=== PATIENT | male | born 1940 | race Caucasian/White ===

== ENCOUNTER → 2016-11-15 | Outpatient (CLI) | payer BC ==
[~2016-11-15] MED LIST: ALL180 PO
== END | disposition home or self-care (01) ==
LOC: C.RDSM 14:33
PROVIDERS: ATTEND Family Medicine
DX: M25.551 Pain in right hip (principal); M25.552 Pain in left hip

== ENCOUNTER → 2017-07-18 | Outpatient (CLI) | payer BC | END | disposition home or self-care (01) | LOC: C.LAB 07:29 | PROVIDERS: ATTEND Urology | DX: N40.1 Benign prostatic hyperplasia with lower urinary tract symptoms (principal); R97.20 Elevated prostate specific antigen [PSA]; R32 Unspecified urinary incontinence ==

== ENCOUNTER → 2017-09-12 | Outpatient (CLI) | payer BC ==
[2017-09-12 11:27] LABS: BLOOD UREA NITROGEN 31 mg/dl (7-18); CREATININE 1.12 mg/dl (0.60-1.40)
== END | disposition home or self-care (01) ==
LOC: C.LABBC 07:50
PROVIDERS: ATTEND Urology
DX: R97.20 Elevated prostate specific antigen [PSA] (principal)

== ENCOUNTER → 2017-09-27 | Outpatient (CLI) | payer BC ==
--- NOTE | 2017-09-27 11:30 | DIAGNOSTIC IMAGING REPORT ---
RIGHT HIP MRI HISTORY: Right hip pain. TECHNIQUE: Multiplanar multisequence MRI of the right hip was performed without the use of contrast. COMPARISON STUDY: Pelvis 11/15/2016. FINDINGS: No fracture or dislocation within the pelvis or hips. Slightly heterogeneous marrow within the visualized osseous structures. This is likely age-related. No suspicious osseous lesions identified. Less than 50% cartilage thinning within the super aspect of the right hip consistent with mild osteoarthritis. No significant hip effusion. Mild edema surrounding the distal right gluteus medius tendon consistent with a mild tenosynovitis. There is also mild edema within the soft tissues adjacent to the greater trochanter. This may represent a developing trochanteric bursitis. Irregular signal within the superior labrum. This may represent degeneration/tear. Enlarged and heterogeneous prostate gland measuring 6.6 cm in diameter. There is severe benign prostatic hypertrophy. IMPRESSION: 1. No fracture or dislocation within the pelvis or hips. 2. Irregular signal within the right superior labrum suggestive of a tear/degeneration. 3. Mild right hip osteoarthritis. 4. Mild right gluteus medius tenosynovitis. There is also mild soft tissue edema adjacent to the greater trochanter. This may represent a developing trochanteric bursitis. Electronically signed by: Dani Garzon M.D. 09/27/2017 11:29 AM Dictated Date/Time: 09/27/2017 11:20 AM
--- NOTE | 2017-09-27 13:50 | DIAGNOSTIC IMAGING REPORT ---
PROSTATE MRI COMBO CLINICAL HISTORY: 77 years-old Male presenting with ELEVATED PSA. TECHNIQUE: Multisequence, multiplanar MR imaging of the prostate was performed before and after the administration of intravenous contrast. Additional postprocessing was performed on a separate Before the Call workstation by the radiologist for 3-D volumetric segmentation of the prostate and contouring of region(s) of interest (ABDULAZIZ) for targeting. IV contrast: 7 cc Gadavist COMPARISON: None. FINDINGS: Prostate: The prostate measures 6.2 x 5.8 x 5.4 cm cm (DynaCAD prostate boundary segmentation volume 107 mL). Severe changes of benign prostatic hyperplasia. Precontrast T1 weighted imaging demonstrates no evidence of intrinsic T1 hyperintensity to suggest hemorrhage. Suspicious lesion(s) described below: Lesion (DynaCAD ABDULAZIZ) 1: Location: Right anterior transition zone at the apex. The lesion does not extend across the midline. Size: 15 x 11 mm (as measured on ADC for PZ lesion and T2WI for TZ lesion) T2W: 3. Heterogeneous signal intensity or noncircumscribed, rounded, moderate hypointensity. No evidence of extraprostatic extension, seminal vesicle invasion, or neurovascular bundle involvement. DWI: 4. Focal markedly hypointense on ADC and markedly hyperintense on high b-value DWI. DCE: Positive. Focal enhancement corresponding to a suspicious finding, earlier or contemporaneous with adjacent normal tissue. PI-RADS: 4. Clinically significant cancer is likely to be present. Seminal vesicles are normal in size. There is a debris-filled right seminal vesicle in comparison to the left. Bladder: Mild bladder trabeculation. Bowel: Visualized portion of the rectum normal. Peritoneum: No free fluid in the pelvis. Lymph nodes: No lymphadenopathy in the visualized portion of the pelvis. Vasculature: Iliac vessels patent. Abdominal wall: Partially visualized 4.5 cm left hydrocele/sprematocele. Osseous structures: Normal bone marrow signal intensity. IMPRESSION: 1. 15 x 11 mm lesion in the right transition zone at the apex. PI-RADS: 4. Clinically significant cancer is likely to be present. This lesion has been segmented for targeted biopsy. 2. Benign prostatic hyperplasia. Electronically signed by: Dani Garzon M.D. 09/27/2017 1:49 PM Dictated Date/Time: 09/27/2017 1:12 PM
== END | disposition home or self-care (01) ==
LOC: C.MRIBC 10:16
PROVIDERS: ATTEND Urology
DX: R97.20 Elevated prostate specific antigen [PSA] (principal); M25.551 Pain in right hip; M76.01 Gluteal tendinitis, right hip; M76.02 Gluteal tendinitis, left hip; M16.0 Bilateral primary osteoarthritis of hip; N40.0 Benign prostatic hyperplasia without lower urinary tract symptoms

== ENCOUNTER 2024-05-20 10:44 | Observation (INO) ==
--- NOTE | 2024-05-06 14:47 | Anesthesiology Consultation ---
Date of Service May 06, 2024 Assessment & Plan (1) Encounter for pre-operative examination: Chart Review Chart Review: Acceptable Risk for Surgery and Patient NOT seen in Pre Admission Testing -Infectious Disease screening: Per PAT nursing assessment on 05/06/24. No known infectious disease contacts in past 10 days or current infectious disease symptoms. No recent travel outside the country. History Surgery Operation Date: 05/20/24 12:50 Proposed Procedures p TURP (Transurethral Resection of Prostate), Destruction and Extraction of Bladder Stones - Kelby Marion, Height/Weight Height: 5 ft 8 in Weight: 72.575 kg Allergies Allergy/AdvReac Type Severity Reaction Status Date / Time No Known Allergies Allergy Verified 05/06/24 13:51 Medications Home Medications Medication Instructions Recorded Confirmed Last Taken melatonin 3 mg tablet 3 mg PO HS PRN Sleep 05/06/24 05/06/24 Unknown melatonin 5 mg tablet 5 mg PO HS PRN Sleep 05/06/24 05/06/24 Unknown sildenafil 50 mg tablet 50 mg PO DAILY PRN Erectile 05/06/24 05/06/24 Unknown Dysfunction valsartan 160 mg tablet 160 mg PO QAM 05/06/24 05/06/24 Unknown zolpidem 10 mg tablet 10 mg PO HS PRN traveling 05/06/24 05/06/24 Unknown Past Medical History Medical History BPH (benign prostatic hyperplasia) Degenerative disc disease Hypertension Liver cyst multiple small cysts, had a larger one aspirated. - stable. Nocturia Pancreas cyst stable Spinal stenosis Urinary frequency Past Family History Family History Father Diabetes Other Hypertension No family history of adverse response to anesthesia Past Surgical History Surgical History H/O removal of cyst cyst aspirated from the liver with anesthesia History of cataract surgery bilateral History of colonoscopy History of prostate surgery Greenlight laser procedure 2018 [facility] procedure 2004 Hx of tonsillectomy Social History Smoking Status: Never smoker Do You Dip or Chew Tobacco: No Hx Alcohol Use: Yes Alcohol type: wine alcohol intake frequency: 0-2 drinks per day Hx Substance Use: No substance use type: does not use Lab Results Anesthesia Preop Results Results Anesthesia Widget: WBC 5.12 K/ul (4.8-10.8) 05/03/24 Hgb 15.1 g/dl (14.0-18.0) 05/03/24 Hct 42.9 % (42.0-52.0) 05/03/24 Plt 129 K/uL (130-400) L 05/03/24 Na 144 mmol/L (136-145) 05/03/24 K 4.4 mmol/L (3.5-5.1) 05/03/24 Cl 110 mmol/L (98-107) H 05/03/24 CO2 27 mmol/L (21-32) 05/03/24 BUN 31 mg/dl (6-23) H 05/03/24 Creat 1.20 mg/dl (0.6-1.4) 05/03/24 Glucose Level 114 mg/dl (70-99(Fasting)) H 05/03/24 Testing Laboratory Results 05/03/24= URINE CULTURE: Three types of organisms present, all low counts probable skin radha Electrocardiogram Date: 05/03/24 Findings: + SB @ (53bpm) Otherwise normal EKG per cardio Chest X-Ray Date: 05/03/24 Findings: + NAD
[2024-05-20] MEDS ORDERED: ONDANSETRON INJ 2 MG/ML 2 ML VIAL IV PRN ×2 (11:21→11:48)
[2024-05-20] MEDS ORDERED: ATROPINE SULFATE 0.1 MG/ML 10ML SYR IV PRN (11:21)
[2024-05-20] MEDS ORDERED: ePHEDrine sulfate 50 MG/ML AMP IV PRN (11:21)
[2024-05-20] MEDS: SODIUM CHLORIDE 0.9% 1,000 ML IV SCH (11:27)
[2024-05-20] MEDS ORDERED: fentaNYL citrate PF 100 MCG/2 ML VIAL ONE (11:46)
[2024-05-20] MEDS ORDERED: LIDOCAINE 2% 2 ML VIAL/AMP(20MG/ML) INFIL ONE (11:47)
[2024-05-20] MEDS ORDERED: PROPOFOL IV EMULSION 10 MG/ML 20 ML VIAL IV ONE (11:47)
--- NOTE | 2024-05-20 11:47 | History & Physical Bridge Note ---
Date of Service May 20, 2024 History & Physical Bridge Note I have examined the patient, reviewed the History & Physical and in the interval since the performance of the History & Physical I have noted the following changes of clinical significance: no changes noted
[2024-05-20] MEDS ORDERED: oxyCODONE/ACETAMINOPHEN 5mg/325mg TAB PO PRN (11:48)
[2024-05-20] MEDS: ceFAZolin 2000MG 2,000 MG/15 ML SYR IV SCH ×2 (11:59→19:20)
[2024-05-20] MEDS ORDERED: MELATONIN 3 MG TAB PO PRN (12:01)
[2024-05-20] MEDS ORDERED: DEXAMETHASONE SOD INJ 4 MG/ML VIAL ONE (12:20)
[2024-05-20] MEDS ORDERED: ePHEDrine sulfate 50 MG/ML AMP ONE (12:34)
--- NOTE | 2024-05-20 13:21 | Operative Report ---
PG Post Operative Report Pre & Post Diagnosis Operation Date: 05/20/24 12:10 Pre-Op Diagnosis: Hematuria, prostate enlargment, outlet obstruction Post-Op Diagnosis: Hematuria, prostate enlargment, outlet obstruction I identified the patient and participated in the time-out.: Yes Procedure Operation Date: 05/20/24 12:10 Actual Procedures p TURP (Transurethral Resection of Prostate) with Destruction and Extraction of Bladder Stones - Kelby Marion, Surgeon Kelby Marion, II, DO Recovery Coach None Estimated Blood Loss 10 Findings Consistent with Post-Op Diagnosis Large Prostate with obstruction and irregular regrowth. Calcified area vs stone within the prostatic urethra causing obstruction and severe inflammation of prostate. Likely bladder stone cleared. Specimens Prostate adenoma. Drains 24Fr 3-way Catheter Anesthesia Type General Complications none Disposition Disposition: Recovery Room Indications Patient with obstruction due to prostate enlargement. Risks and benefits discussed at length. Description of Procedure Patient was consented and brought back to the operating room. Patient was placed under anesthesia in the supine position and moved to the dorsal lithotomy position. Patient was prepped and draped in the regular sterile fashion. A time out was completed. A 30degree Cystoscope was placed into the bladder and the entire bladder was examined. The UO's were identified as well as the bladder neck, trigone, dome, and the other important landmarks. The prostatic urethra and large lobes/adenoma was assessed and the veru and bladder neck identified and area/size was assessed. Within the prostatic urethra between the left lateral lobe and the median lobe there was a significantly inflamed and calcified area likely a bladder stone obstructing at the bladder neck. Attempts to displace this were difficult due to the areas of inflammation and surrounding varicosities. Additionally there were what appeared to be bladder stones seen during the cystoscopy. The resection scope was placed and the fine bipolar loop was selected. Starting at the 5 and 7 o'clock positions, a channel was created from bladder neck to the veru. This was able to free the calcified area after resection of this median lobe. All of this tissue was displaced back to the bladder. Resection was then taken from the 1 in 11 o'clock position down to the channel along the median lobe. Tissue was resected down to capsule fibers. A moderate amount of regrowth was noted but the regrowth was nodular and a large amount of prostatic tissue had to be resected. The resection was then completed. All bleeding was controlled. Additional resection was then completed along the anterior portion of the prostate. The Specimen was removed and sent for analysis. The resection bed and any bleeding areas were fulgurated/cauterized and the entire area inspected. The stones within the bladder and the large stone from the urethra had been destroyed. These were then extracted. This had been mixed in with the prostatic specimen. All bleeding was controlled. The bladder was inspected a final time. The bladder was emptied and irrigated. All specimen and debris was removed. The scope was removed with the bladder partially full. A catheter was placed and balloon elevated. This was easily irrigated. The patient was cleaned, aroused from anesthesia, and transferred to the pacu in stable condition having tolerated the procedure well with no complications. I was present and participated in all aspects of the procedure. The patient will be monitored in the PACU until transferred. Plan to maintain catheter for approximately 10 to 14 days. Will follow-up in the office for catheter removal and pathology I attest to the content of the Intraoperative Record and any orders documented therein. Any exceptions are noted below.
[2024-05-20] MEDS: fentaNYL citrate PF 100 MCG/2 ML VIAL IV PRN (13:40)
--- NOTE | 2024-05-20 13:47 | Anesthesiology Progress Note ---
Date of Service May 20, 2024 Anesthesia Post Procedure Vital Signs Vital Signs: Temp Pulse Resp BP Pulse Ox O2 Del Method 05/20/24 11:12 36.6 C 74 22 151/88 H 96 Room Air Transfer of Care Handoff Completed per policy Notes Mental Status: alert / awake / arousable Patient Amnestic to Procedure: Yes Nausea / Vomiting: adequately controlled Pain: adequately controlled Airway Patency, RR, SpO2: stable & adequate BP & HR: stable & adequate Hydration State: stable & adequate Anesthetic Complications: no major complications apparent
[2024-05-20 13:54] LABS: Basophils # (auto) 0.03 K/uL (0.00-0.20); Basophils % (auto) 0.5 %; Eosinophils # (auto) 0.08 K/uL (0.00-0.50); Eosinophils % (auto) 1.4 %; Hematocrit (blood only) 39.6 % (42.0-52.0); Hemoglobin 13.7 g/dl (14.0-18.0); Immature Granulocytes # (auto) 0.02 K/uL (0.01-0.20); Immature Granulocytes % (auto) 0.3 %; Lymphocytes # (auto) 0.64 K/uL (1.20-3.40); Lymphocytes % (auto) 10.9 %; Mean Corpuscular Hemoglobin 31.7 pg (25.0-34.0); Mean Corpuscular Hgb Conc 34.6 g/dL (32.0-36.0); Mean Corpuscular Volume 91.7 fL (80.0-100.0); Mean Platelet Volume 11.1 fL (9.4-12.4); Monocytes # (auto) 0.28 K/uL (0.11-0.59); Monocytes % (auto) 4.8 %; Neutrophils # (auto) 4.82 K/uL (1.40-6.50); Neutrophils % (auto) 82.1 %; Platelet Count 115 K/uL (130-400); RDW Coefficient of Variation 12.4 % (11.5-14.5); RDW Standard Deviation 41.4 fL (36.4-46.3); Red Blood Count 4.32 M/uL (4.70-6.10); White Blood Count 5.87 K/ul (4.8-10.8)
[2024-05-20] MEDS ORDERED: ZOLPIDEM TARTRATE 5 MG TAB PO PRN (14:01)
[2024-05-20 14:10] LABS: Albumin Globulin Ratio 1.8 (0.9-2); Bilirubin,Total 0.5 mg/dl (0.2-1.0); Calcium 8.6 mg/dl (8.6-10.3); Creatinine Clr Calc Pharmacy 48.8 ml/min; Globulin 2.2 gm/dl (2.5-4.0); Potassium 4.4 mmol/L (3.5-5.1); Total Protein 6.2 gm/dl (6.0-8.3)
[2024-05-20] MEDS: MoRPHine SULFATE 2 MG/ML CARP IV PRN (15:50)
[2024-05-20] MEDS: MoRPHine SULFATE 4 MG/ML 1 ML CARP\\VIAL ONE (17:22)
[2024-05-20] MEDS: LR 15ML/HR IV SCH (17:23)
[2024-05-21 09:35] LABS: Basophils # (auto) 0.02 K/uL (0.00-0.20); Basophils % (auto) 0.2 %; Eosinophils # (auto) 0.03 K/uL (0.00-0.50); Eosinophils % (auto) 0.3 %; Hematocrit (blood only) 36.5 % (42.0-52.0); Hemoglobin 12.9 g/dl (14.0-18.0); Immature Granulocytes # (auto) 0.06 K/uL (0.01-0.20); Immature Granulocytes % (auto) 0.6 %; Lymphocytes # (auto) 0.89 K/uL (1.20-3.40); Lymphocytes % (auto) 9.6 %; Mean Corpuscular Hemoglobin 32.4 pg (25.0-34.0); Mean Corpuscular Hgb Conc 35.3 g/dL (32.0-36.0); Mean Corpuscular Volume 91.7 fL (80.0-100.0); Mean Platelet Volume 11.3 fL (9.4-12.4); Monocytes # (auto) 0.42 K/uL (0.11-0.59); Monocytes % (auto) 4.5 %; Neutrophils # (auto) 7.83 K/uL (1.40-6.50); Neutrophils % (auto) 84.8 %; Platelet Count 125 K/uL (130-400); RDW Coefficient of Variation 12.5 % (11.5-14.5); RDW Standard Deviation 42.1 fL (36.4-46.3); Red Blood Count 3.98 M/uL (4.70-6.10); White Blood Count 9.25 K/ul (4.8-10.8)
[2024-05-21 09:43] LABS: BUN Creatinine Ratio 25.9 (10-20); Calcium 8.7 mg/dl (8.6-10.3); Creatinine Clr Calc Pharmacy 50.1 ml/min; Potassium 3.7 mmol/L (3.5-5.1)
[2024-05-21] MEDS: VALSARTAN 80 MG TAB PO SCH (09:57)
--- NOTE | 2024-05-21 10:15 | Urology Progress Note ---
Date of Service May 21, 2024 Assessment & Plan (1) BPH with obstruction/lower urinary tract symptoms: (2) Gross hematuria: Plan - POD #1 s/p TURP with Destruction and Extraction of Bladder Stones w/ Dr. Marion - Feeling well, progressing as expected - Afebrile with stable vitals - Labs today show no leukocytosis, hemoglobin 12.9, creatinine 1.08 - Owens intact and draining clear yellow urine with CBI on slow drip Plan: - CBI clamped this morning, nursing aware. Will reassess later this morning. - Maintain Owens catheter - Encourage OOB/ambulation - Continue supportive care - Anticipate discharge home later today pending patient progression Admission and Anticipated Discharge Date Admission Date: May 20, 2024 Subjective Patient seen at bedside today Awake and resting in bed on arrival No acute distress Owens draining clear yellow urine with CBI on slow drip Reports minimal pain Denies fever, chills, nausea, vomiting Review of Systems Constitutional: as per Subjective / HPI Genitourinary: + as per Subjective / HPI Physical Exam Constitutional: no acute distress Respiratory: no respiratory distress and no labored breathing Neurologic: awake Psychiatric: A+Ox3, euthymic affect Genitourinary: Owens intact with CBI Results & Data Vital Signs (Past 12 Hours) Vital Signs Temp Pulse Resp BP Pulse Ox O2 Del Method 05/21/24 07:49 36.4 C L 57 L 16 128/63 94 Room Air 05/21/24 03:00 36.4 C L 58 L 16 122/65 95 Room Air 05/21/24 00:02 84 100/55 L 05/20/24 23:00 36.4 C L 64 16 98/58 L 94 Room Air PG Care Time/CCT Total # of Minutes Spent Total Time Spent with Patient: Total time spent is greater than 50% in coordination of care (as documented) at patient's floor/unit and/or counseling patient: Coding Level of Care Code None Diagnoses BPH with obstruction/lower urinary tract symptoms N40.1; N13.8 Gross hematuria R31.0
--- NOTE | 2024-05-21 13:58 | Discharge Summary ---
Date of Service May 21, 2024 Admission HPI Per Admitting Provider 84-year-old male with a history of BPH and hematuria who presents for TURP with Destruction and Extraction of Bladder Stones Admission Exam Per Admitting Provider General: Alert in no acute distress. HEENT: Normocephalic Atraumatic. Inspection normal. Psychologic: Normal affect. Respiratory: Nonlabored. Cardiovascular: No tachycardia Skin: Patterson and Dry Principal Diagnosis Hematuria; BPH; Elevated PSA Discharge Exam Constitutional no acute distress Respiratory no respiratory distress and no labored breathing Musculoskeletal Head/Neck/Chest: normocephalic Skin no rashes, warm and dry Neurologic moves all extremities and awake Psychiatric A+Ox3, euthymic affect Genitourinary Owens intact and draining clear yellow urine Discharge Data Allergies Allergy/AdvReac Type Severity Reaction Status Date / Time No Known Allergies Allergy Verified 05/20/24 11:10 Procedures Performed Operation Date: 05/20/24 12:10 Actual Procedures p TURP (Transurethral Resection of Prostate), with Extraction of Bladder Stones(Not Applicable) - Kelby Marion, Hospital Course (1) BPH with obstruction/lower urinary tract symptoms: (2) Gross hematuria: Plan 84-year-old male admitted status post TURP with Destruction and Extraction of Bladder Stones w/ Dr. Marion. Patient tolerated procedure well. No issues postoperatively. Remained afebrile with stable vitals. Postoperative labs were appropriate. CBI clamped on the morning of postop day #1. Urine remained clear yellow off CBI. Patient reported minimal pain. Tolerated diet. Ambulated without issue. He was subsequently discharged home on postop day #1 with a Owens catheter in place. He was in stable condition at time of discharge. Discharge instructions were reviewed and all questions were answered. Appropria te postoperative follow-up appointment in place. Total Time Total Time Spent Total Time Spent (In Minutes): 15 Discharge Plan Discharge Items Patient Disposition: Home - Self-Care Reason For Visit: Gross Hematuria, Elevated Prostate Specific Antige Discharge Diagnosis: Gross hematuria, BPH, Elevated PSA Condition on Discharge: Good Activity: Per Instructions section Bathing Comment: Ok to shower. No tub baths or soaks. Sexual Activity: Wait until after follow-up appointment Exercise/Sports: Wait until after follow-up appointment Non-emergency contact: Surgeon and Urologist Call non-emergency contact if: you have any medication questions, your symptoms worsen, your pain is not controlled and you have a fever Follow-up/Referrals: Kelby Marion DO [Physician] - 05/29/24 9:45 am Ronni Cabral MD [Primary Care Provider] - Diet: Regular Addtl Attending Provider Instructions: Please take all medications as prescribed and keep all follow-ups as scheduled. Please call our office at [phone] with any questions, concerns or need to reschedule appointments for any reason. We are happy to assist you. Tips for your recovery at home: Dont be alarmed by brownish or reddish blood or clots in your urine. This is a result of the procedure. This may occur off and on for weeks to months after the procedure but should continue to improve. Drink plenty of fluids during the day (enough to keep your urine very light colored). This will help keep a healthy flow of urine. Do not lift >25 lbs until your followup Avoid constipation. Please use a stool softener (Colace) for the first two weeks after your procedure Be sure to finish the antibiotics as prescribed. If you go home with a catheter, please wash tubing where it enters your body twice daily with mild soap (Dove or Dial). Once your catheter is removed, expect some blood in your urine and some burning when you urinate. You should have an appointment to have this removed, if you do not please call our office to arrange. When to call [facility] at [phone]: Your urine contains heavy blood clots or your catheter stops draining You are constantly leaking urine Fever of 101F or higher, chills, nausea, or vomiting Your pain is not relieved with medication Pending Studies at Discharge: Yes (pathology) Stand-Alone Forms: My [facility] idio, Smoking Cessation Medications and DC Order Prescriptions: New cephalexin 500 mg capsule 500 mg PO Q12H 5 Days Qty: 10 0RF Continued sildenafil [Viagra] 50 mg Tablet 50 mg PO DAILY PRN (Reason: Erectile Dysfunction) Rx Instructions: administer 30 minutes to 4 hours before activity zolpidem [Ambien] 10 mg Tablet 10 mg PO HS PRN (Reason: traveling) valsartan 160 mg Tablet 160 mg PO QAM melatonin 3 mg Tablet 3 mg PO HS PRN (Reason: Sleep) melatonin 5 mg Tablet 5 mg PO HS PRN (Reason: Sleep) Discharge Orders: Discharge Order (Routine); Ordered 05/21/24 Ordered By: Sheila Banda/Other Patient Handouts: What is Hematuria?, Hematuria: Possible Causes Admission Data Admit Date/Time: 05/20/24 11:48 Attending Provider: Kelby Marion Admit Provider: Kelby Marion Primary Care Provider: Ronni Cabral Other Interventions: Discharge Summary Assessment (RN) Last Done: 05/21/24 12:47 Coding Level of Care Code 57552 IN/OBS DISCH 30 MIN/LESS Diagnoses BPH with obstruction/lower urinary tract symptoms N40.1; N13.8 Gross hematuria R31.0
== END 2024-05-21 14:02 | disposition home or self-care (01) ==
LOC: PACUINP 10:44 → ASU 10:44 → 3N 16:19

== ENCOUNTER 2024-06-07 16:18 | Inpatient (IN) ==
[2024-06-07 17:14] LABS: Basophils # (auto) 0.05 K/uL (0.00-0.20); Basophils % (auto) 0.3 %; Eosinophils # (auto) 0.11 K/uL (0.00-0.50); Eosinophils % (auto) 0.7 %; Hematocrit (blood only) 38.7 % (42.0-52.0); Hemoglobin 13.6 g/dl (14.0-18.0); Immature Granulocytes % (auto) 0.7 %; Lymphocytes # (auto) 0.82 K/uL (1.20-3.40); Lymphocytes % (auto) 5.5 %; Mean Corpuscular Hemoglobin 32.5 pg (25.0-34.0); Mean Corpuscular Hgb Conc 35.1 g/dL (32.0-36.0); Mean Corpuscular Volume 92.6 fL (80.0-100.0); Mean Platelet Volume 10.9 fL (9.4-12.4); Monocytes # (auto) 1.14 K/uL (0.11-0.59); Monocytes % (auto) 7.6 %; Neutrophils # (auto) 12.73 K/uL (1.40-6.50); Neutrophils % (auto) 85.2 %; Platelet Count 151 K/uL (130-400); RDW Coefficient of Variation 12.5 % (11.5-14.5); RDW Standard Deviation 42.6 fL (36.4-46.3); Red Blood Count 4.18 M/uL (4.70-6.10); White Blood Count 14.95 K/ul (4.8-10.8)
[2024-06-07 17:29] LABS: Albumin Globulin Ratio 1.2 (0.9-2); BUN Creatinine Ratio 25.4 (10-20); Bilirubin,Total 0.6 mg/dl (0.2-1.0); Calcium 9.3 mg/dl (8.6-10.3); Globulin 3.3 gm/dl (2.5-4.0); Potassium 4.3 mmol/L (3.5-5.1); Total Protein 7.3 gm/dl (6.0-8.3)
[2024-06-07 17:48] LABS: INR 1.1 (0.9-1.1); Partial Thromboplastin Time 28 Seconds (21-31); Prothrombin Time 11.6 Seconds (9.0-12.0)
--- NOTE | 2024-06-07 18:32 | Emergency Department Note ---
Impression & Plan Complicated urinary tract infection, Acute epididymitis ED Provider Note HISTORY OF PRESENT ILLNESS: Patient is a 84-year-old male presenting with hematuria and scrotal pain. Patient reports he had a TURP procedure on 05/20/2024. He had a catheter in place and that was discharged on 05/28/2024. He reports that he has been intermittently having hematuria and passage of blood clots over the last 10 days. He states that he took a dose of Pyridium yesterday. However, starting yesterday he had a temperature up to 101. He states he has been having subjective fevers and chills at home ever since. Has also been having significant pain in his bilateral testicles and scrotal region. He denies any injury to this area. He denies any abdominal pain, nausea or vomiting. Denies any chest pain or shortness of breath. Denies any recent sick contact exposures. He does report that his urine started to burn slightly today with voiding. He also has been passing large blood clots. Denies any anticoagulation or antiplatelet use. ROS: as above PHYSICAL EXAM: Constitutional: Patient appears in no acute distress. HENT: Head: Normocephalic and atraumatic. Eyes: EOMI, PERRL Mouth/Throat: Mucous membranes moist. Neck: Trachea midline. Neck supple. Cardiovascular: RRR, No murmurs, rubs or gallops. Intact distal pulses. Pulmonary/Chest: No respiratory distress. Breath sounds clear and equal bilaterally. No wheezes or rales. Abdominal: Abdomen soft, no tenderness, rebound or guarding. Musculoskeletal: No edema, tenderness or deformity noted. Skin: Warm and dry. No rash, erythema, pallor or cyanosis Psychiatric: Appropriate mood and affect for situation. Neurological: Alert and keenly responsive. CN II-XII grossly intact, moving all extremities equally and fully. MDM: - Vitals signs showed hypertension - History obtained via patient. History as above. - Chronic conditions affecting care: BPH; prostate cancer - Differential diagnoses include, but are not limited to: UTI; urinary obstruction; sepsis; coagulopathy; pyelonephritis - Order placed for continuous cardiac monitoring. At this time, monitor showed rate of 70 bpm with normal sinus rhythm, per my interpretation. - External medical records reviewed. Urology visit note dated 05/29/2024 was reviewed. Patient is status post transurethral resection of the prostate. He was found to have prostate cancer. His catheter was removed during his visit. - Laboratory workup interpreted by myself showed leukocytosis (WBC 14.95) with neutrophil predominance; normal PT/INR; normal lactate; normal procalcitonin; normal electrolytes - UA shows evidence of infection - Viral respiratory panel negative - CT abdomen/pelvis with IV contrast showed severe mucosal thickening of the bladder consistent with cystitis. Also noted to have right epididymitis and left-sided hydrocele. - Patient given 2g IV rocephin. - Given patient's recent urological procedure in the setting of his new acute UTI and systemic subjective fevers and chills, will admit for complicated UTI. - Discussion was had with gearcase assembler about patient's case and need for admission - Hospitalist, Dr. Connolly, consulted for admission - Patient admitted to [facility] service for further evaluation and management. ASSESSMENT AND PLAN: Diagnosis: Complicated UTI; acute epididymitis Plan: Admit Past Med/Surg History Problem List (Updated 06/07/24 @ 23:13 by Debora Silva MD) Acute epididymitis (Acute) Complicated urinary tract infection (Acute) Prostate cancer Gross hematuria Erectile dysfunction Elevated prostate specific antigen (PSA) BPH with obstruction/lower urinary tract symptoms Medical History (Updated 06/07/24 @ 23:13 by Debora Silva MD) Encounter for pre-operative examination Degenerative disc disease Pancreas cyst stable Liver cyst multiple small cysts, had a larger one aspirated. - stable. BPH (benign prostatic hyperplasia) Hypertension Nocturia Spinal stenosis Urinary frequency Surgical History (Updated 06/06/24 @ 09:06 by Harriet Vu RN) S/P TURP 05/20/24 with destruction and extraction of bladder stones; History of cataract surgery bilateral H/O removal of cyst cyst aspirated from the liver with anesthesia History of colonoscopy removal of polyps - benign History of prostate surgery Greenlight laser procedure 2018 TUNA procedure 2004 Hx of tonsillectomy Family History (Updated 06/06/24 @ 09:08 by Harriet Vu RN) Father Diabetes H/O prostatectomy Mother Arthritis Grandmother (Maternal) Stomach cancer, Onset Age: 55 Grandfather (Maternal) Stomach cancer, Onset Age: 65 Other Hypertension No family history of adverse response to anesthesia Social History (Updated 06/06/24 @ 09:09 by Harriet Vu RN) Smoking Status: Never smoker Second Hand Exposure: No; Do You Dip or Chew Tobacco: No; Hx Alcohol Use: Yes Alcohol type: wine Alcohol Intake Frequency: 4 or More x per/Week Hx Substance Use: No Preferred Language: Chinese Communication Ability: Effective [employer] Required: No Beliefs That Will Affect Care: None marital status: Current Living Situation: Spouse 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al status: retired 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: [employer] How many Children do You have: 2 Feels Safe at Home: Yes Assistive Devices: Glasses Allergies Allergies Allergy/AdvReac Type Severity Reaction Status Date / Time No Known Allergies Allergy Verified 05/29/24 09:25 Home Meds Home Medications Medication Instructions Recorded Confirmed melatonin 3 mg tablet 3 mg PO HS PRN Sleep 05/06/24 06/07/24 melatonin 5 mg tablet 5 mg PO HS PRN Sleep 05/06/24 06/07/24 sildenafil 50 mg tablet (Viagra) 50 mg PO DAILY PRN Erectile 05/06/24 06/07/24 Dysfunction valsartan 160 mg tablet 160 mg PO QAM 05/06/24 06/07/24 zolpidem 10 mg tablet (Ambien) 10 mg PO HS PRN traveling 05/06/24 06/07/24 fexofenadine 60 mg tablet (Clara 60 mg PO .COMPLEX 06/06/24 06/07/24 Allergy) magnesium 250 mg tablet 250 mg PO DAILY 06/06/24 06/07/24 Results & Data (ED) Vital Signs Vital Signs - 24 hr 06/07/24 16:28 06/07/24 18:41 06/07/24 18:49 Temperature 36.8 C Temperature Source Oral Pulse Rate 81 69 Pulse Rate [Apical] 69 Pulse Rhythm Regular Respiratory Rate 20 22 Respiratory Effort / Characteristics Non-Labored Spontaneous Respiratory Depth Normal Blood Pressure 129/90 Blood Pressure [Left Arm] 139/71 Blood Pressure Mean 103 Blood Pressure Mean [Left Arm] 93 Blood Pressure Position [Left Arm] Semi-fowlers Pulse Oximetry 96 94 Oxygen Delivery Method Room Air Room Air Sepsis Recent Fever Within 48 Hours No Sepsis New/Unexplained Change in Mental Status No Sepsis Action Taken by Nursing No Action Required 06/07/24 20:00 06/07/24 21:00 06/07/24 22:43 Temperature Temperature Source Pulse Rate 70 Pulse Rate [Apical] 71 71 Pulse Rhythm Respiratory Rate 20 33 H Respiratory Effort / Characteristics Respiratory Depth Blood Pressure Blood Pressure [Left Arm] 143/72 H 136/69 Blood Pressure Mean Blood Pressure Mean [Left Arm] 95 91 Blood Pressure Position [Left Arm] Semi-fowlers Semi-fowlers Pulse Oximetry 94 93 Oxygen Delivery Method Room Air Room Air Sepsis Recent Fever Within 48 Hours Sepsis New/Unexplained Change in Mental Status Sepsis Action Taken by Nursing Laboratory Data 06/07/24 16:57 06/07/24 16:57 Lab Results 06/07/24 06/07/24 06/07/24 Range/Units 16:57 18:09 18:35 WBC 14.95 H (4.8-10.8) K/ul RBC 4.18 L (4.70-6.10) M/uL Hgb 13.6 L (14.0-18.0) g/dl Hct 38.7 L (42.0-52.0) % MCV 92.6 (80.0-100.0) fL MCH 32.5 (25.0-34.0) pg MCHC 35.1 (32.0-36.0) g/dL RDW Std Deviation 42.6 (36.4-46.3) fL RDW Coeff of Tracy 12.5 (11.5-14.5) % Plt Count 151 (130-400) K/uL MPV 10.9 (9.4-12.4) fL Immature Gran % (Auto) 0.7 % Neut % (Auto) 85.2 % Lymph % (Auto) 5.5 % [place] % (Auto) 7.6 % Eos % (Auto) 0.7 % Baso % (Auto) 0.3 % Neut # (Auto) 12.73 H (1.40-6.50) K/uL Lymph # (Auto) 0.82 L (1.20-3.40) K/uL [place] # (Auto) 1.14 H (0.11-0.59) K/uL Eos # (Auto) 0.11 (0.00-0.50) K/uL Baso # (Auto) 0.05 (0.00-0.20) K/uL Immature Gran # (Auto) 0.10 (0.01-0.20) K/uL PT 11.6 (9.0-12.0) Seconds INR 1.1 (0.9-1.1) APTT 28 (21-31) Seconds PTT Ratio 1.0 Sodium 140 (136-145) mmol/L Potassium 4.3 (3.5-5.1) mmol/L Chloride 105 (98-107) mmol/L Carbon Dioxide 27 (21-32) mmol/L Anion Gap 8 (3-11) BUN 32 H (6-23) mg/dl Creatinine 1.26 (0.6-1.4) mg/dl Est Cr Clr Drug Dosing 43.0 ml/min eGFR 56.59 BUN/Creatinine Ratio 25.4 H (10-20) Glucose 128 H (70-99(Fasting)) mg/dl Lactate 1.2 (0.4-2.0) mmol/L Calcium 9.3 (8.6-10.3) mg/dl Total Bilirubin 0.6 (0.2-1.0) mg/dl AST 20 (13-39) U/L ALT 17 (7-52) U/L Alkaline Phosphatase 75 (34-104) U/L Total Protein 7.3 (6.0-8.3) gm/dl Albumin 4.0 (3.4-5.0) gm/dl Globulin 3.3 (2.5-4.0) gm/dl Albumin/Globulin Ratio 1.2 (0.9-2) Procalcitonin 0.25 (0-0.5) ng/ml Urine Color Dark Yellow Urine Appearance Turbid A (Clear) Urine pH 5.5 (4.5-7.5) Ur Specific [place] 1.025 (1.000-1.030) Urine Protein 2+ H (Negative) Urine Glucose (UA) Negative (Negative) Urine Ketones Trace H (Negative) Urine Blood 3+ H (Negative) Urine Nitrite Positive A (Negative) Urine Bilirubin Negative (Negative) Urine Urobilinogen Negative (Negative) Ur Leukocyte Esterase 3+ H (Negative) Urine WBC (Auto) >50 H (0-5) /hpf Urine RBC (Auto) >20 H (0-2) /hpf U Hyaline Cast (Auto) 6-10 H (0-2) /lpf U Epithel Cells (Auto) 0-2 (0-2) /hpf Urine Bacteria (Auto) 3+ H (None Seen) Hyaline Casts Present A (None Presnt) /lpf Adenovirus (PCR) (NotDetected) B. pertussis DNA (PCR) (NotDetected) B.parapertussis DNA PCR (NotDetected) C. pneumoniae DNA (PCR) (NotDetected) Coronavirus OC43 (PCR) (NotDetected) Coronavirus HKU1 (PCR) (NotDetected) Coronavirus 229E (PCR) (NotDetected) SARS-CoV-2 (PCR) (NotDetected) Coronavirus NL63 (PCR) (NotDetected) Human Metapneumovir PCR (NotDetected) Influenza Type A (PCR) (NotDetected) Influenza Type B (PCR) (NotDetected) M. pneumoniae (PCR) (NotDetected) Parainfluenza 1 (PCR) (NotDetected) Parainfluenza 2 (PCR) (NotDetected) Parainfluenza 3 (PCR) (NotDetected) Parainfluenza 4 (PCR) (NotDetected) RSV (PCR) (NotDetected) Entero/Rhino (PCR) (NotDetected) 06/07/24 Range/Units 18:36 WBC (4.8-10.8) K/ul RBC (4.70-6.10) M/uL Hgb (14.0-18.0) g/dl Hct (42.0-52.0) % MCV (80.0-100.0) fL MCH (25.0-34.0) pg MCHC (32.0-36.0) g/dL RDW Std Deviation (36.4-46.3) fL RDW Coeff of Tracy (11.5-14.5) % Plt Count (130-400) K/uL MPV (9.4-12.4) fL Immature Gran % (Auto) % Neut % (Auto) % Lymph % (Auto) % [place] % (Auto) % Eos % (Auto) % Baso % (Auto) % Neut # (Auto) (1.40-6.50) K/uL Lymph # (Auto) (1.20-3.40) K/uL [place] # (Auto) (0.11-0.59) K/uL Eos # (Auto) (0.00-0.50) K/uL Baso # (Auto) (0.00-0.20) K/uL Immature Gran # (Auto) (0.01-0.20) K/uL PT (9.0-12.0) Seconds INR (0.9-1.1) APTT (21-31) Seconds PTT Ratio Sodium (136-145) mmol/L Potassium (3.5-5.1) mmol/L Chloride (98-107) mmol/L Carbon Dioxide (21-32) mmol/L Anion Gap (3-11) BUN (6-23) mg/dl Creatinine (0.6-1.4) mg/dl Est Cr Clr Drug Dosing ml/min eGFR BUN/Creatinine Ratio (10-20) Glucose (70-99(Fasting)) mg/dl Lactate (0.4-2.0) mmol/L Calcium (8.6-10.3) mg/dl Total Bilirubin (0.2-1.0) mg/dl AST (13-39) U/L ALT (7-52) U/L Alkaline Phosphatase (34-104) U/L Total Protein (6.0-8.3) gm/dl Albumin (3.4-5.0) gm/dl Globulin (2.5-4.0) gm/dl Albumin/Globulin Ratio (0.9-2) Procalcitonin (0-0.5) ng/ml Urine Color Urine Appearance (Clear) Urine pH (4.5-7.5) Ur Specific [place] (1.000-1.030) Urine Protein (Negative) Urine Glucose (UA) (Negative) Urine Ketones (Negative) Urine Blood (Negative) Urine Nitrite (Negative) Urine Bilirubin (Negative) Urine Urobilinogen (Negative) Ur Leukocyte Esterase (Negative) Urine WBC (Auto) (0-5) /hpf Urine RBC (Auto) (0-2) /hpf U Hyaline Cast (Auto) (0-2) /lpf U Epithel Cells (Auto) (0-2) /hpf Urine Bacteria (Auto) (None Seen) Hyaline Casts (None Presnt) /lpf Adenovirus (PCR) Not Detected (NotDetected) B. pertussis DNA (PCR) Not Detected (NotDetected) B.parapertussis DNA PCR Not Detected (NotDetected) C. pneumoniae DNA (PCR) Not Detected (NotDetected) Coronavirus OC43 (PCR) Not Detected (NotDetected) Coronavirus HKU1 (PCR) Not Detected (NotDetected) Coronavirus 229E (PCR) Not Detected (NotDetected) SARS-CoV-2 (PCR) Not Detected (NotDetected) Coronavirus NL63 (PCR) Not Detected (NotDetected) Human Metapneumovir PCR Not Detected (NotDetected) Influenza Type A (PCR) Not Detected (NotDetected) Influenza Type B (PCR) Not Detected (NotDetected) M. pneumoniae (PCR) Not Detected (NotDetected) Parainfluenza 1 (PCR) Not Detected (NotDetected) Parainfluenza 2 (PCR) Not Detected (NotDetected) Parainfluenza 3 (PCR) Not Detected (NotDetected) Parainfluenza 4 (PCR) Not Detected (NotDetected) RSV (PCR) Not Detected (NotDetected) Entero/Rhino (PCR) Not Detected (NotDetected) Administered Medications Discontinued Medications Ceftriaxone Sodium (Rocephin) 2,000 mg in 50 mls @ 100 mls/hr IV NOW STA Stop: 06/07/24 19:40 Last Infusion: 06/07/24 21:31 Dose: Infused Documented By: Admin: 06/07/24 20:31 Dose: 100 mls/hr Documented By: CEF Ioversol (Optiray 320 100ml) 93 ml IV ONCE ONE Stop: 06/07/24 19:54 Last Admin: 06/07/24 19:54 Dose: 93 ml Documented By: EDK Imaging Data Radiologist's Impression: Abdomen/Pelvis CT 06/07/24 18:26 Exam(s): CT ABDOMEN + PELVIS With Contrast IV Amt: 93ml opti 320 EXAM: CT Abdomen and Pelvis With Intravenous Contrast CLINICAL HISTORY: Reason for exam: scrotal pain; fevers/chills. TECHNIQUE: Axial computed tomography images of the abdomen and pelvis with intravenous contrast. CTDI is 34 mGy and DLP is 1225.45 mGy-cm. Automated exposure control was utilized for the study. A dose lowering technique was utilized adhering to the principles of ALARA. CONTRAST: Patient received 93ml opti 320 of IV contrast COMPARISON: No relevant prior studies available. FINDINGS: ABDOMEN: Liver: Innumerable cysts within the liver. Gallbladder and bile ducts: Unremarkable. Pancreas: Sequela of chronic pancreatitis. Spleen: Unremarkable. Adrenals: Unremarkable. Kidneys and ureters: No evidence of pyelonephritis. Stomach and bowel: Unremarkable. PELVIS: Appendix: No findings to suggest acute appendicitis. Bladder: Severe mucosal thickening in the bladder consistent with cystitis. Foci of gas within the bladder. Reproductive: Prostate is heterogeneous with adjacent fat stranding. Left-sided hydrocele. Hyperemic right epididymis consistent with epididymitis. ABDOMEN and PELVIS: Intraperitoneal space: Unremarkable. No free air. No significant fluid collection. Bones/joints: Degenerative changes in the lumbar spine. Soft tissues: Unremarkable. Vasculature: Unremarkable. Lymph nodes: Unremarkable. IMPRESSION: 1. Severe mucosal thickening in the bladder consistent with cystitis. Foci of gas within the bladder. 2. Prostate is heterogeneous with adjacent fat stranding. 3. Hyperemic right epididymis consistent with epididymitis. 4. Left-sided hydrocele. Electronically signed by: Marlon Scott MD 06/07/24 20:39 PM Discharge Plan Visit Data Chief Complaint: Urinary Symptoms Stated Complaint: INCONTINENT SINCE CATH REMOVED 05/28 ED Provider: Debora Silva Discharge Problem: Complicated urinary tract infection, Acute epididymitis Forms Stand Alone Forms: My [facility] [employer] Prescriptions Prescriptions: No Action fexofenadine [Clara Allergy] 60 mg tablet 60 mg PO .COMPLEX Rx Instructions: 60 mg orally once a week; magnesium 250 mg tablet 250 mg PO DAILY sildenafil [Viagra] 50 mg Tablet 50 mg PO DAILY PRN (Reason: Erectile Dysfunction) Rx Instructions: administer 30 minutes to 4 hours before activity zolpidem [Ambien] 10 mg Tablet 10 mg PO HS PRN (Reason: traveling) valsartan 160 mg Tablet 160 mg PO QAM melatonin 3 mg Tablet 3 mg PO HS PRN (Reason: Sleep) melatonin 5 mg Tablet 5 mg PO HS PRN (Reason: Sleep) Referrals Referrals: Ronni Cabral MD [Primary Care Provider] -
[2024-06-07 18:35] LABS: Appearance Urine Turbid (Clear); Bacteria Urine Automated 3+ (None Seen); Bilirubin Urine Negative (Negative); Blood Urine 3+ (Negative); Color Urine Dark Yellow; Epithelial Cell Urine Auto 0-2 /hpf (0-2); Glucose Urine UA Negative (Negative); Hyaline Casts Urine Present /lpf (None Presnt); Ketones Urine Trace (Negative); Leukocyte Esterase Urine 3+ (Negative); Nitrite Urine Positive (Negative); Protein Urine 2+ (Negative); RBC Urine Automated >20 /hpf (0-2); Specific Gravity Urine 1.025 (1.000-1.030); Urobilinogen Urine Negative (Negative); WBC Urine Automated >50 /hpf (0-5); pH Urine 5.5 (4.5-7.5)
[2024-06-07] MEDS: OPTIRAY 320 100ml IV ONE (19:54)
[2024-06-07 19:57] LABS: Adenovirus PCR Not Detected (NotDetected); Bordetella parapertussis PCR Not Detected (NotDetected); Bordetella pertussis PCR Not Detected (NotDetected); Chlamydia pneumoniae PCR Not Detected (NotDetected); Coronavirus 229E PCR Not Detected (NotDetected); Coronavirus CoV-2 (COVID19)PCR Not Detected (NotDetected); Coronavirus HKU1 PCR Not Detected (NotDetected); Coronavirus NL63 PCR Not Detected (NotDetected); Coronavirus OC43PCR Not Detected (NotDetected); Human Metapneumovirus PCR Not Detected (NotDetected); Influenza A PCR Not Detected (NotDetected); Influenza B PCR Not Detected (NotDetected); Mycoplasma pneumoniae PCR Not Detected (NotDetected); Parainfluenza Virus 1 PCR Not Detected (NotDetected); Parainfluenza Virus 2 PCR Not Detected (NotDetected); Parainfluenza Virus 3 PCR Not Detected (NotDetected); Parainfluenza Virus 4 PCR Not Detected (NotDetected); Respiratory Syncytial VirusPCR Not Detected (NotDetected); Rhinovirus/Enterovirus PCR Not Detected (NotDetected)
[2024-06-07] MEDS: cefTRIAXone SODIUM 2,000 MG/50 ML BAG IV STA (20:31)
--- NOTE | 2024-06-07 20:40 | CT Scan Report ---
Exam(s): CT ABDOMEN + PELVIS With Contrast IV Amt: 93ml opti 320 EXAM: CT Abdomen and Pelvis With Intravenous Contrast CLINICAL HISTORY: Reason for exam: scrotal pain; fevers/chills. TECHNIQUE: Axial computed tomography images of the abdomen and pelvis with intravenous contrast. CTDI is 34 mGy and DLP is 1225.45 mGy-cm. Automated exposure control was utilized for the study. A dose lowering technique was utilized adhering to the principles of ALARA. CONTRAST: Patient received 93ml opti 320 of IV contrast COMPARISON: No relevant prior studies available. FINDINGS: ABDOMEN: Liver: Innumerable cysts within the liver. Gallbladder and bile ducts: Unremarkable. Pancreas: Sequela of chronic pancreatitis. Spleen: Unremarkable. Adrenals: Unremarkable. Kidneys and ureters: No evidence of pyelonephritis. Stomach and bowel: Unremarkable. PELVIS: Appendix: No findings to suggest acute appendicitis. Bladder: Severe mucosal thickening in the bladder consistent with cystitis. Foci of gas within the bladder. Reproductive: Prostate is heterogeneous with adjacent fat stranding. Left-sided hydrocele. Hyperemic right epididymis consistent with epididymitis. ABDOMEN and PELVIS: Intraperitoneal space: Unremarkable. No free air. No significant fluid collection. Bones/joints: Degenerative changes in the lumbar spine. Soft tissues: Unremarkable. Vasculature: Unremarkable. Lymph nodes: Unremarkable. IMPRESSION: 1. Severe mucosal thickening in the bladder consistent with cystitis. Foci of gas within the bladder. 2. Prostate is heterogeneous with adjacent fat stranding. 3. Hyperemic right epididymis consistent with epididymitis. 4. Left-sided hydrocele. Electronically signed by: Marlon Scott MD 06/07/24 20:39 PM
--- OUTSIDE RECORDS SUMMARY | 2024-06-07 22:48 | External Medical Summary | Summary of Care ---
Author Name Unknown Organization [facility] Address [address] [place] [address] Phone [phone] Care Team Providers Care Business Strategist Name Role Phone Marianna GODINEZ MD, Ronni Garcia Primary Care Provider [phone] Encounter Details Date Type Department Care Team (Late st Contact Info) Description 05/20/2024 Result Scan Unspecified Department Ronni Cabral III, MD [address] [place] [address] <No scans attached> Allergies Active Allergy Reactions Criticality Noted Date Comments Dust 05/21/2013 Nasal congestion Molds & Smuts 05/21/2013 Nasal congestion documented as of this encounter (statuses as of 06/04/2024) Medications metroNIDAZOLE, topical, (METROCREAM) 0.75 % creamIndications :Rosacea Apply to face daily for rosacea. 45 g 5 9 Active Calcium-Magnesiu m-Vitamin D 185-50-100 MG-MG-UNIT CAPS Take by mouth daily. Active Melatonin 3 MG Oral Tablet Take 1 Tablet by mouth at bedtime. Active Fexofenadine HCl 180 MG Oral Tablet Take 1 Tablet by mouth in the morning. Active Fluocinolone Acetonide 0.01 % External Solution (Synalar) Apply to 3 drops to both ears every other night 60 mL 2 4 Active Valsartan 160 MG Oral Tablet (Diovan) Take 1 Tablet by mouth in the morning. 90 Tablet 3 4 Active Triamcinolone Acetonide 0.1 % External Cream (Aristocort)Marlin cations:[place]'s disease APPLY TOPICALLY TO RASHES ON THE BODY TWICE DAILY NEEDED FOR FLARES. 454 g 4 Active Sildenafil Citrate 20 MG Oral Tablet (Revatio)Indicat ions:Erectile dysfunction, unspecified erectile dysfunction type TAKE 2-3 TABLETS BY MOUTH PRIOR TO INTERCOURSE 30 Tablet 3 4 Active Zolpidem Tartrate 10 MG Oral Tablet (Ambien)Indicati ons:Insomnia, unspecified type Take 1 Tablet by mouth at bedtime as needed for Sleep. 6 Tablet 4 Active documented as of this encounter (statuses as of 06/04/2024) Active Problems Problem Noted Date Diagnosed Date HTN, goal below 140/90 07/11/2019 SPINAL STENOSIS-LUMBAR 07/19/2005 documented as of this encounter (statuses as of 06/04/2024) Resolved Problems Problem Noted Date Diagnosed Date Resolved Date Thrombocytopenia 07/11/2019 11/02/2022 Elevated blood pressure 05/12/201501/10 ADVANCE DIRECTIVE INFORMATION 10/28/2004 11/14/2022 Overview (10/28/2004): Yes, Patient instructed to provide copy of advance directive for provider to review and to be scanned into Electronic Medical Record documented as of this encounter (statuses as of 06/04/2024) Immunizations Name Administration Dates Next Due COVID-19 mRNA, LNP-s, No Pre serve, 2-Dose Series (PingThings) 02/13/2021,08/18/2020,07/21/2020 COVID-19, MRNA-LNP, PF, 30 M CG/0.3 mL, 12 YRS AND ABOVE, IM (PFIZER-Comirnaty) 03/05/2024,03/17/2023 HEP A - Hepatitis A (Adult > 18 yrs) 04/14/2014 Pneumococcal Conjugate Vacc, 13 Valent (Prevnar) 05/22/2014 Pneumococcal Polysaccharide PPV23 (Pneumovax) 09/17/2015,08/17/2005 RSV Vac., Recomb, Adjuvant, PF,0.5 Ml (Arexvy) 05/16/2023 Seasonal Influenza Vac., MDV , IM, 0.5 mL (Fluzone) 04/14/2014,05/21/2013,03/29/2012,03/13,03/31/2010,03/25/2008,04/17/20,04/20/2006 04/07/2012 Seasonal Influenza Virus Vac cine, Unspecified Formulation 03/05/2024 Seasonal Influenza, High Dos e, Trivalent, PF, IM (Fluzone HD) 03/12/2022 Seasonal Influenza, PF, 6 M & above, IM , (FluLaval or Fluzone) 02/27/2019,03/27/2018,04/07/2017 Seasonal Influenza, Quadriva lent Hd (Fluzone Hd) 03/13/2023,03/02/2021 Seasonal Influenza, Quadriva lent Hd, 65+ Yrs 02/17/2020 Seasonal Influenza, Quadriva lent, No Preserve, IM 05/11/2016,04/01/2015 TD, Preservative Free 01/28/2016 TDAP, Age 7 and older, IM (Adacel) 12/14/2005 Varicella Zoster Vaccine (Adult) 07/04/2011 Zoster Vaccine Recombinant (Shingrix) 04/30/2018 ,01/24/2018 documented as of this encounter Social History Tobacco Use Types Packs/Day Years Used Date Smoking Tobacco: Never Smokeless Tobacco: Never Alcohol Use Standard Drinks/Week Comments Yes 0 (1 standard drink = 0.6 oz pur e alcohol) 1/day PHQ-2 Answer Date Recorded PHQ-2 Score 2 12/31/2018 Hunger Vital Sign Answer Date Recorded Within the past 12 months, y ou worried that your food would run out before you got the money to buy more. Never true 03/21/20 24 Within the past 12 months, t he food you bought just didn't last and you didn't have money to get more. Never true 03/21/2024 Childcare Answer Date Recorded Do you feel overwhelmed with taking care of a child, family member or friend? No 03/21/2024 Does your family need help f inding childcare? (Household - for ages 0-17 years) Not on file 03/21/2024 Clothing Answer Date Recorded Have you been unable to get clothing when it was really needed? No 03/21/2024 Is your family able to get c lothes or diapers when needed? (Household - for ages 0-17 years) Not on file 03/21/2024 Personal Safety Answer Date Recorded Do you feel unsafe or have concerns for your saf ety? No 03/21/2024 Do you have concerns for you r family's safety? (Household - for ages 0-17 years) Not on file 03/21/2024 Utilities Answer Date Recorded Do you have trouble paying y our heating, water, or electric bill? No 03/21/2024 Is your family able to pay t he heat, water, or electric bill? (Household - for ages 0-17 years) Not on file 03/21/2024 Does your family have access to good internet? (Household - for ages 0-17 years) Not on file 03/21/2024 Employment Status Answer Date Recorded Are you unemployed or without regular income? No 03/21/2024 Does the household have a re lar source of income? (Household - for ages 0-17 years) Not on file 03/21/2024 Social Connections Answer Date Recorded How often do you feel lonely or isolated from th ose around you? Rarely 03/21/2024 Financial Resource Strain Answer Date R ecorded Do you have any trouble payi ng for your medications, or do you think you might in the future? No 03/21/2024 Does your family have troubl e paying for medicine? (Household - for ages 0-17 years) Not on file 03/21/2024 Transportation Needs Answer Date Record ed Do you have trouble getting a ride to medical visits or work? (Adult - for ages 18 years and over) Not on file 03/21/2024 Does your family have a hard time getting a ride to doctors visits? (Household - for ages 0-17 years) Not on file 03/21/2024 Has lack of transportation k ept you from medical appointments, meetings, work, or from getting things needed for daily living? Check all that apply. No 03/21/2024 Do you (or your family) have trouble finding or paying for a ride (transportation)? (Household - for ages 0-17 years) Not on file 03/21/2024 Housing Stability Answer Date Recorded Do you currently live in a s helter or have no steady place to sleep at night? No 03/21/2024 Do you think you are at risk of becoming homeless? (Adult - for ages 18 years and over) Not on file 03/21/2024 Does your family worry about paying for your home or becoming homeless? (Household - for ages 0-17 years) Not on file 1 Are you homeless or worried that you might be in the future? No 03/21/2024 Are you (or your family) jose eless or worried that you might be in the future? (Household - for ages 0-17 years) Not on file Food Insecurity Answer Date Recorded Do you need food for this week? No 03/21/2024 Are you able to get enough f ood for your family? (Household - for ages 0-17 years) Not on file 03/21/2024 Does your family need food t his week? (Household - for ages 0-17 years) Not on file 03/21/2024 Do you always have enough fo od for your family? (Household - for ages 0-17 years) Not on file 03/21/2024 Sex and Gender Information Value Date Recorded Sex Assigned at Male 02/14/2022 12:49 PM EDT Legal Sex Male 5:06 AM EST Gender Identity Male 02/14/2022 12:49 PM EDT Sexual Orientation Straight 02/14/2022 12 :49 PM EDT Occupation Industry Job Start Date Job End Date retired 11/2003 Not on file Not on file Not on file documented as of this encounter Plan of Treatment Upcoming Encounters Date Type Department Care Team (Late st Contact Info) Description 07/02/2024 9:40 AM EST Office Visit [facility] [address] [place] [id number] Ronni Cabral III, MD [address] [place] [id number] 10/03/2024 8:20 AM EDT Office Visit [facility] [address] [place] [id number] Ronni Cabral III, MD [address] [place] [id number] 10/23/2024 11:30 AM EDT Office Visit Otol[facility]ology [facility] [address] [id number] Stephanie Chakraborty PA-C [address] [place] [id number] Scheduled Procedures Name Priority Associated Diagnoses Date/Ti me COLONOSCOPY FLEXIBLE PROXIMAL DIAGNOSTIC Recall History of colon polyps Health Maintenance Due Date Last Done Comments Adult Wellness Visit 09/10/2015 09/09/2014 Depression Screening 12/31/2020 01/01/2020 Colonoscopy 01/23/2025 01/24/2020, 01/10, 10/30/2014, Additional history exists GFR 04/04/2025 04/04/2024, 03/13, 11/02/2022, Additional history exists DTap/Tdap Vaccines (3 - Td or Tdap) 01/27/2026 01/28/2016, 12/14/2005 Albumin/Creatinine Ratio 04/04/2027 024, 09/28/2023, 03/29/2023 Zoster Vaccines Completed 04/30/2018, 01/10, 11/08/2017, Additional history exists RETIRED - COLONOSCOPY-EVERY 5 YRS AGES 18-100 Discontinued 01/24/2020, 01/24/2020, 10/30/2014, Additional history exists Pneumococcal Vaccine: 65+ Years Completed 10/12/2023, 09/17/2015, 05/22/2014, Additional history exists COVID-19 Vaccine Completed 03/05/2024, 07/2023, 03/17/2023, Additional history exists Influenza Vaccine (FLU shot) Completed 03/05/2024, 03/13/2023, 03/12/2022, Additional history exists HPV (Gardasil) Vaccine Aged Out No lo nger eligible based on patient's age to complete this topic Hepatitis B Vaccine Aged Out No longe r eligible based on patient's age to complete this topic MENINGOCOCCAL (MENACTRA/MENVEO) Aged Out No longer eligible based on patient's age to complete this topic documented as of this encounter Medical Devices Implanted Type Area Intensive Care Anaesthetist Device Identifier Shelf Expiration Date Model / Serial / Lot Lens Intraoc 21.0 - [id number] - [id number] Implanted:Qty: 1 on 03/30/2021 by Aldo Solorzano MD at OR [facility] Right: Eye [employer] 12/09/2025 [id number] / [id number] / [id number] Lens Intraoc 20.5 - [id number] - [id number] Implanted:Qty: 1 on 04/13/2021 by Aldo Solorzano MD at OR [facility] Left: Eye [employer] 01/09/2026 [id number] / [id number] / documented as of this encounter Procedures Procedure Name Priority Date/Time Associated Diagnosis Comments PATHOLOGY SCANNED RESULT 05/20/2024 documented in this encounter Results * PATHOLOGY SCANNED RESULT (05/20/2024) 05/20/2024 Ronni Cabral III, MD PATHOLOGY Final Resul t documented in this encounter Advance Directives Documents on File Type Date Recorded 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
--- NOTE | 2024-06-08 00:43 | History & Physical Report ---
Date of Service June 08, 2024 Assessment & Plan (1) Complicated urinary tract infection: Plan: 84-year-old male with past medical history significant for hypertension, lumbar spinal stenosis who recently had TURP procedure on 05/20/2024 comes because of fever and chills starting yesterday. He says he still passing blood clots in the urine. His scrotum is also tender. Denies any abdominal pain. Normal bowel movements. He denies any chest pain or shortness of breath. No cough. No headache no runny nose or sore throat. No headache. Currently resting comfortably and hemodynamically stable. Complicated urinary tract infection Hematuria Patient with recent TURP presents with fever and chills Still having blood clots in the urine And also scrotal tenderness CT scan of abdomen pelvis showing cystitis with foci of gas in the bladder. And also consistent with right epididymitis Received Rocephin in the ER which will be continued Will follow cultures Gentle fluids Consult urology in a.m. for further recommendations Hypertension on valsartan Will monitor DVT prophylaxis SCDs Disposition Medical floor Full code. History of Present Illness Chief Complaint: Fever and chills Primary Care Provider: Ronni Cabral MD 84-year-old male with past medical history significant for hypertension, lumbar spinal stenosis who recently had TURP procedure on 05/20/2024 comes because of fever and chills starting yesterday. He says he still passing blood clots in the urine. His scrotum is also tender. Denies any abdominal pain. Normal bowel movements. He denies any chest pain or shortness of breath. No cough. No headache no runny nose or sore throat. No headache. Currently resting comfortably and hemodynamically stable. Past med history. As mentioned above. Past surgical history. Anterior eye surgery. Colonoscopy. Incision of hip tendon. Bilateral cataracts. Sacroiliac joint injection. Social history. . No smoking. Alcohol 1 drink per day as per [employer]. No drug use. Family history. Mother had arthritis. Stroke. Father had stroke. TURP. Diabetes. Allergies Allergy/AdvReac Type Severity Reaction Status Date / Time No Known Allergies Allergy Verified 05/29/24 09:25 Home Medications Medication Instructions Recorded Confirmed Type melatonin 3 mg tablet 3 mg PO HS PRN Sleep 05/06/24 06/07/24 History melatonin 5 mg tablet 5 mg PO HS PRN Sleep 05/06/24 06/07/24 History sildenafil 50 mg tablet (Viagra) 50 mg PO DAILY PRN Erectile 05/06/24 06/07/24 History Dysfunction valsartan 160 mg tablet 160 mg PO QAM 05/06/24 06/07/24 History zolpidem 10 mg tablet (Ambien) 10 mg PO HS PRN traveling 05/06/24 06/07/24 History fexofenadine 60 mg tablet (Clara 60 mg PO .COMPLEX 06/06/24 06/07/24 History Allergy) magnesium 250 mg tablet 250 mg PO DAILY 06/06/24 06/07/24 History Past Med/Surg History Problem List (Updated 06/07/24 @ 23:13 by Debora Silva MD) Acute epididymitis (Acute) Complicated urinary tract infection (Acute) Prostate cancer Gross hematuria Erectile dysfunction Elevated prostate specific antigen (PSA) BPH with obstruction/lower urinary tract symptoms Medical History (Updated 06/07/24 @ 23:13 by Debora Silva MD) Encounter for pre-operative examination Degenerative disc disease Pancreas cyst stable Liver cyst multiple small cysts, had a larger one aspirated. - stable. BPH (benign prostatic hyperplasia) Hypertension Nocturia Spinal stenosis Urinary frequency Surgical History (Updated 06/06/24 @ 09:06 by Harriet Vu RN) S/P TURP 05/20/24 with destruction and extraction of bladder stones; History of cataract surgery bilateral H/O removal of cyst cyst aspirated from the liver with anesthesia History of colonoscopy removal of polyps - benign History of prostate surgery Greenlight laser procedure 2018 TUNA procedure 2004 Hx of tonsillectomy Family History (Updated 06/06/24 @ 09:08 by Harriet Vu RN) Father Diabetes H/O prostatectomy Mother Arthritis Grandmother (Maternal) Stomach cancer, Onset Age: 55 Grandfather (Maternal) Stomach cancer, Onset Age: 65 Other Hypertension No family history of adverse response to anesthesia Social History (Updated 06/06/24 @ 09:09 by Harriet Vu RN) Smoking Status: Never smoker Second Hand Exposure: No; Do You Dip or Chew Tobacco: No; Hx Alcohol Use: Yes Alcohol type: wine Alcohol Intake Frequency: 4 or More x per/Week Hx Substance Use: No Preferred Language: Slovak Communication Ability: Effective Operational Communication Chief Required: No Beliefs That Will Affect Care: None marital status: Current Living Situation: Spouse 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al status: retired 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 Head- atraumatic Eyes- PERRL. ENT- oropharynx clear Neck- supple, no JVD Lungs- clear to auscultation no wheezing or crackles Heart- regular rhythm; no murmur, no gallop. Abdomen- normal bowel sounds, soft, nontender, no distension. . Scrotum edematous and erythematous Extremities- no pretibial edema, no erythema seen. Neuro- alert, oriented ,PERRL, no facial palsy; no dysarthria; moves extremities Results & Data Results & Data Vital Signs (Past 12 Hours) Vital Signs Temp Pulse Pulse Resp BP BP Pulse Ox 06/08/24 00:00 64 16 129/73 99 06/07/24 22:43 70 06/07/24 21:00 71 33 H 136/69 93 06/07/24 20:00 71 20 143/72 H 94 06/07/24 18:49 69 06/07/24 18:41 69 22 139/71 94 06/07/24 16:28 36.8 C 81 20 129/90 96 O2 Del Method 06/08/24 00:00 Room Air 06/07/24 22:43 06/07/24 21:00 Room Air 06/07/24 20:00 Room Air 06/07/24 18:49 06/07/24 18:41 Room Air 06/07/24 16:28 Room Air Diagnostic Findings Laboratory Results WBC 14.95 K/ul (4.8-10.8) H 06/07/24 16:57 RBC 4.18 M/uL (4.70-6.10) L 06/07/24 16:57 Hgb 13.6 g/dl (14.0-18.0) L 06/07/24 16:57 Hct 38.7 % (42.0-52.0) L 06/07/24 16:57 MCV 92.6 fL (80.0-100.0) 06/07/24 16:57 MCH 32.5 pg (25.0-34.0) 06/07/24 16:57 MCHC 35.1 g/dL (32.0-36.0) 06/07/24 16:57 RDW Std Deviation 42.6 fL (36.4-46.3) 06/07/24 16:57 RDW Coeff of Tracy 12.5 % (11.5-14.5) 06/07/24 16:57 Plt Count 151 K/uL (130-400) 06/07/24 16:57 MPV 10.9 fL (9.4-12.4) 06/07/24 16:57 Immature Gran % (Auto) 0.7 % 06/07/24 16:57 Neut % (Auto) 85.2 % 06/07/24 16:57 Lymph % (Auto) 5.5 % 06/07/24 16:57 [place] % (Auto) 7.6 % 06/07/24 16:57 Eos % (Auto) 0.7 % 06/07/24 16:57 Baso % (Auto) 0.3 % 06/07/24 16:57 Neut # (Auto) 12.73 K/uL (1.40-6.50) H 06/07/24 16:57 Lymph # (Auto) 0.82 K/uL (1.20-3.40) L 06/07/24 16:57 [place] # (Auto) 1.14 K/uL (0.11-0.59) H 06/07/24 16:57 Eos # (Auto) 0.11 K/uL (0.00-0.50) 06/07/24 16:57 Baso # (Auto) 0.05 K/uL (0.00-0.20) 06/07/24 16:57 Immature Gran # (Auto) 0.10 K/uL (0.01-0.20) 06/07/24 16:57 PT 11.6 Seconds (9.0-12.0) 06/07/24 16:57 INR 1.1 (0.9-1.1) 06/07/24 16:57 APTT 28 Seconds (21-31) 06/07/24 16:57 PTT Ratio 1.0 06/07/24 16:57 Sodium 140 mmol/L (136-145) 06/07/24 16:57 Potassium 4.3 mmol/L (3.5-5.1) 06/07/24 16:57 Chloride 105 mmol/L (98-107) 06/07/24 16:57 Carbon Dioxide 27 mmol/L (21-32) 06/07/24 16:57 Anion Gap 8 (3-11) 06/07/24 16:57 BUN 32 mg/dl (6-23) H 06/07/24 16:57 Creatinine 1.26 mg/dl (0.6-1.4) 06/07/24 16:57 Est Cr Clr Drug Dosing 43.0 ml/min 06/07/24 16:57 eGFR 56.59 06/07/24 16:57 BUN/Creatinine Ratio 25.4 (10-20) H 06/07/24 16:57 Glucose 128 mg/dl (70-99(Fasting)) H 06/07/24 16:57 Lactate 1.2 mmol/L (0.4-2.0) 06/07/24 18:35 Calcium 9.3 mg/dl (8.6-10.3) 06/07/24 16:57 Total Bilirubin 0.6 mg/dl (0.2-1.0) 06/07/24 16:57 AST 20 U/L (13-39) 06/07/24 16:57 ALT 17 U/L (7-52) 06/07/24 16:57 Alkaline Phosphatase 75 U/L (34-104) 06/07/24 16:57 Total Protein 7.3 gm/dl (6.0-8.3) 06/07/24 16:57 Albumin 4.0 gm/dl (3.4-5.0) 06/07/24 16:57 Globulin 3.3 gm/dl (2.5-4.0) 06/07/24 16:57 Albumin/Globulin Ratio 1.2 (0.9-2) 06/07/24 16:57 Procalcitonin 0.25 ng/ml (0-0.5) 06/07/24 16:57 Urine Color Dark Yellow 06/07/24 18:09 Urine Appearance Turbid (Clear) A 06/07/24 18:09 Urine pH 5.5 (4.5-7.5) 06/07/24 18:09 Ur Specific [place] 1.025 (1.000-1.030) 06/07/24 18:09 Urine Protein 2+ (Negative) H 06/07/24 18:09 Urine Glucose (UA) Negative (Negative) 06/07/24 18:09 Urine Ketones Trace (Negative) H 06/07/24 18:09 Urine Blood 3+ (Negative) H 06/07/24 18:09 Urine Nitrite Positive (Negative) A 06/07/24 18:09 Urine Bilirubin Negative (Negative) 06/07/24 18:09 Urine Urobilinogen Negative (Negative) 06/07/24 18:09 Ur Leukocyte Esterase 3+ (Negative) H 06/07/24 18:09 Urine WBC (Auto) >50 /hpf (0-5) H 06/07/24 18:09 Urine RBC (Auto) >20 /hpf (0-2) H 06/07/24 18:09 U Hyaline Cast (Auto) 6-10 /lpf (0-2) H 06/07/24 18:09 U Epithel Cells (Auto) 0-2 /hpf (0-2) 06/07/24 18:09 Urine Bacteria (Auto) 3+ (None Seen) H 06/07/24 18:09 Hyaline Casts Present /lpf (None Presnt) A 06/07/24 18:09 Adenovirus (PCR) Not Detected (NotDetected) 06/07/24 18:36 B. pertussis DNA (PCR) Not Detected (NotDetected) 06/07/24 18:36 B.parapertussis DNA PCR Not Detected (NotDetected) 06/07/24 18:36 C. pneumoniae DNA (PCR) Not Detected (NotDetected) 06/07/24 18:36 Coronavirus OC43 (PCR) Not Detected (NotDetected) 06/07/24 18:36 Coronavirus HKU1 (PCR) Not Detected (NotDetected) 06/07/24 18:36 Coronavirus 229E (PCR) Not Detected (NotDetected) 06/07/24 18:36 SARS-CoV-2 (PCR) Not Detected (NotDetected) 06/07/24 18:36 Coronavirus NL63 (PCR) Not Detected (NotDetected) 06/07/24 18:36 Human Metapneumovir PCR Not Detected (NotDetected) 06/07/24 18:36 Influenza Type A (PCR) Not Detected (NotDetected) 06/07/24 18:36 Influenza Type B (PCR) Not Detected (NotDetected) 06/07/24 18:36 M. pneumoniae (PCR) Not Detected (NotDetected) 06/07/24 18:36 Parainfluenza 1 (PCR) Not Detected (NotDetected) 06/07/24 18:36 Parainfluenza 2 (PCR) Not Detected (NotDetected) 06/07/24 18:36 Parainfluenza 3 (PCR) Not Detected (NotDetected) 06/07/24 18:36 Parainfluenza 4 (PCR) Not Detected (NotDetected) 06/07/24 18:36 RSV (PCR) Not Detected (NotDetected) 06/07/24 18:36 Entero/Rhino (PCR) Not Detected (NotDetected) 06/07/24 18:36 Impressions Abdomen/Pelvis CT 06/07/24 18:26 Exam(s): CT ABDOMEN + PELVIS With Contrast IV Amt: 93ml opti 320 EXAM: CT Abdomen and Pelvis With Intravenous Contrast CLINICAL HISTORY: Reason for exam: scrotal pain; fevers/chills. TECHNIQUE: Axial computed tomography images of the abdomen and pelvis with intravenous contrast. CTDI is 34 mGy and DLP is 1225.45 mGy-cm. Automated exposure control was utilized for the study. A dose lowering technique was utilized adhering to the principles of ALARA. CONTRAST: Patient received 93ml opti 320 of IV contrast COMPARISON: No relevant prior studies available. FINDINGS: ABDOMEN: Liver: Innumerable cysts within the liver. Gallbladder and bile ducts: Unremarkable. Pancreas: Sequela of chronic pancreatitis. Spleen: Unremarkable. Adrenals: Unremarkable. Kidneys and ureters: No evidence of pyelonephritis. Stomach and bowel: Unremarkable. PELVIS: Appendix: No findings to suggest acute appendicitis. Bladder: Severe mucosal thickening in the bladder consistent with cystitis. Foci of gas within the bladder. Reproductive: Prostate is heterogeneous with adjacent fat stranding. Left-sided hydrocele. Hyperemic right epididymis consistent with epididymitis. ABDOMEN and PELVIS: Intraperitoneal space: Unremarkable. No free air. No significant fluid collection. Bones/joints: Degenerative changes in the lumbar spine. Soft tissues: Unremarkable. Vasculature: Unremarkable. Lymph nodes: Unremarkable. IMPRESSION: 1. Severe mucosal thickening in the bladder consistent with cystitis. Foci of gas within the bladder. 2. Prostate is heterogeneous with adjacent fat stranding. 3. Hyperemic right epididymis consistent with epididymitis. 4. Left-sided hydrocele. Electronically signed by: Marlon Scott MD 06/07/24 20:39 PM Code Status & VTE Plan VTE Prophylaxis Plan VTE Prophylaxis will be ordered: Yes
[2024-06-08] MEDS ORDERED: MELATONIN 3 MG TAB PO PRN (02:05)
[2024-06-08] MEDS: SODIUM CHLORIDE 0.9% 1,000 ML IV SCH (02:27)
[2024-06-08 07:06] LABS: Basophils # (auto) 0.04 K/uL (0.00-0.20); Basophils % (auto) 0.3 %; Eosinophils % (auto) 1.7 %; Hematocrit (blood only) 36.4 % (42.0-52.0); Hemoglobin 12.4 g/dl (14.0-18.0); Immature Granulocytes # (auto) 0.06 K/uL (0.01-0.20); Immature Granulocytes % (auto) 0.5 %; Lymphocytes # (auto) 0.86 K/uL (1.20-3.40); Lymphocytes % (auto) 7.3 %; Mean Corpuscular Hemoglobin 31.5 pg (25.0-34.0); Mean Corpuscular Hgb Conc 34.1 g/dL (32.0-36.0); Mean Corpuscular Volume 92.4 fL (80.0-100.0); Mean Platelet Volume 11.1 fL (9.4-12.4); Monocytes # (auto) 0.91 K/uL (0.11-0.59); Monocytes % (auto) 7.7 %; Neutrophils # (auto) 9.71 K/uL (1.40-6.50); Neutrophils % (auto) 82.5 %; Platelet Count 139 K/uL (130-400); RDW Coefficient of Variation 12.4 % (11.5-14.5); RDW Standard Deviation 42.1 fL (36.4-46.3); Red Blood Count 3.94 M/uL (4.70-6.10); White Blood Count 11.78 K/ul (4.8-10.8)
[2024-06-08 07:19] LABS: BUN Creatinine Ratio 24.6 (10-20); Calcium 8.9 mg/dl (8.6-10.3); Creatinine Clr Calc Pharmacy 47.5 ml/min; Magnesium 1.9 mg/dl (1.7-2.4); Potassium 4.2 mmol/L (3.5-5.1)
[2024-06-08] MEDS: VALSARTAN 80 MG TAB PO SCH (08:41)
[2024-06-08] MEDS: MAGNESIUM OXIDE 400 MG TAB PO SCH (08:41)
--- NOTE | 2024-06-08 09:12 | Urology Consultation ---
Date of Consultation June 08, 2024 Assessment & Plan (1) Acute epididymitis: (2) Gross hematuria: (3) Complicated urinary tract infection: Plan 84-year-old male with UTI and epididymoorchitis s/p TURP. Urine culture with preliminary E. coli, should be covered with ceftriaxone. Can narrow coverage as culture data becomes available. He will likely require ~2 weeks of antibiotics for epididymitis and UTI I do not appreciate any abscesses on imaging or exam that would require drainage. We will hold off surgical intervention for now. Would recommend obtaining postvoid residual bladder scans to ensure that he is emptying well. If he develops retention, he will require Owens catheter placement. If there are blood clots, he may need hand irrigation, but he seems to be emptying well for now. Urology will follow along History of Present Illness Reason for Consultation: Acute UTI s/p TURP Attending Physician: Joe Figueroa MD History of Present Illness This is an 84-year-old male followed by urology for BPH, hematuria, prostate cancer. He underwent transurethral resection of the prostate and destruction of bladder stones on 05/20/2024. The pathology from TURP incidentally identified Holly 3+4 prostate cancer. He underwent a voiding trial on 05/29/2024. He reports that since then he has had some urinary leaking as well as some hematuria with blood clots. He started having some fevers up to 101 F on 06/06/2024 was instructed to go to the emergency department for evaluation. He was also reporting some pain in the testicles. Workup in the ED was notable for leukocytosis (WBC 14.9) with left shift. Creatinine was 1.26. Procalcitonin was 0.25. Urinalysis demonstrated blood, positive nitrites, 3+ leukocyte esterase and 3+ bacteria. A CT scan of the abdomen pelvis was performed. I independently reviewed these images from 06/07/2024. Both kidneys are in normal position. I do not appreciate any stones in either kidney. There is no hydronephrosis bilaterally. The bladder wall is thickened and there is some gas within the bladder. There is some heterogeneous appearing material which could represent blood clot in the prostate. I do not appreciate any focal fluid collections that would suggest a prostatic abscess. There is some fluid in the scrotal sac. He was started on ceftriaxone admitted to the hospital for close monitoring. Urology was consulted given his recent procedure and current concern for UTI. This morning he feels like he is improving with the antibiotics. He feels like his urinary stream has actually gotten better. He is not sure whether he is emptying his bladder to completion given his recent surgery. He still has some tenderness down in the scrotal sac, particularly on the right side. Allergies Allergy/AdvReac Type Severity Reaction Status Date / Time No Known Allergies Allergy Verified 05/29/24 09:25 Home Medications Medication Instructions Recorded Confirmed Type melatonin 3 mg tablet 3 mg PO HS PRN Sleep 05/06/24 06/07/24 History melatonin 5 mg tablet 5 mg PO HS PRN Sleep 05/06/24 06/07/24 History sildenafil 50 mg tablet (Viagra) 50 mg PO DAILY PRN Erectile 05/06/24 06/07/24 History Dysfunction valsartan 160 mg tablet 160 mg PO QAM 05/06/24 06/07/24 History zolpidem 10 mg tablet (Ambien) 10 mg PO HS PRN traveling 05/06/24 06/07/24 History fexofenadine 60 mg tablet (Clara 60 mg PO .COMPLEX 06/06/24 06/07/24 History Allergy) magnesium 250 mg tablet 250 mg PO DAILY 06/06/24 06/07/24 History Patient History Medical History (Updated 06/07/24 @ 23:13 by Debora Silva MD) Encounter for pre-operative examination Degenerative disc disease Pancreas cyst stable Liver cyst multiple small cysts, had a larger one aspirated. - stable. BPH (benign prostatic hyperplasia) Hypertension Nocturia Spinal stenosis Urinary frequency Surgical History (Updated 06/06/24 @ 09:06 by Harriet Vu RN) S/P TURP 05/20/24 with destruction and extraction of bladder stones; History of cataract surgery bilateral H/O removal of cyst cyst aspirated from the liver with anesthesia History of colonoscopy removal of polyps - benign History of prostate surgery Greenlight laser procedure 2018 TUNA procedure 2004 Hx of tonsillectomy Family History (Updated 06/06/24 @ 09:08 by Harriet Vu RN) Father Diabetes H/O prostatectomy Mother Arthritis Grandmother (Maternal) Stomach cancer, Onset Age: 55 Grandfather (Maternal) Stomach cancer, Onset Age: 65 Other Hypertension No family history of adverse response to anesthesia Social History (Updated 06/06/24 @ 09:09 by Harriet Vu RN) Smoking Status: Never smoker Second Hand Exposure: No; Do You Dip or Chew Tobacco: No; Hx Alcohol Use: Yes Alcohol type: wine Alcohol Intake Frequency: 4 or More x per/Week Hx Substance Use: No Preferred Language: Syriac Communication Ability: Effective Professor Of Apologetics Required: No Beliefs That Will Affect Care: None marital status: Current Living Situation: Spouse 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al status: retired 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: [employer] How many Children do You have: 2 Other Information That Helps Us Care for You: No Feels Safe at Home: Yes Safety Concerns: Feels Safe At This Time Assistive Devices: None Review of Systems Review of Systems: 12 point review of systems negative exce pt for otherwise indicated. Physical Exam Constitutional: well developed and well nourished; no acute distress Eyes: + anicteric sclerae; pupils not irregula r Respiratory: normal respiratory effort; no respiratory distress, does not use accessory muscles and no cough Cardiovascular: well perfused Gastrointestinal (Abdomen): Inspection/Auscultation: abdomen normal to inspection; abdomen not distended Musculoskeletal: Extremities: extremities normal to inspection Skin: normal turgor; no rashes and no lesions Neurologic: moves all extremities and awake Psychiatric: Orientation: alert and oriented x 3 Genitourinary: Penis with orthotopic meatus, no discharge or drainage. Right hemiscrotum is warm to touch with firmness and tenderness of the right testis and epididymis. Left testis feels relatively normal. Results & Data Vital Signs (Past 12 Hours) Vital Signs Temp Pulse Pulse Pulse Resp BP Pulse Ox 06/08/24 07:23 36.4 C L 74 20 143/77 H 94 06/08/24 02:28 36.3 C L 71 18 166/72 H 92 06/08/24 02:05 36.3 C L 71 18 166/72 H 92 06/08/24 00:00 64 16 129/73 99 06/07/24 22:43 70 O2 Del Method 06/08/24 07:23 Room Air 06/08/24 02:28 Room Air 06/08/24 02:05 Room Air 06/08/24 00:00 Room Air 06/07/24 22:43 PG Care Time/CCT Total # of Minutes Spent Total Time Spent with Patient: Total time spent is greater than 50% in coordination of care (as documented) at patient's floor/unit and/or counseling patient: Coding Level of Care Code 34808 INT INP/OBS CARE 2MIN Diagnoses Acute epididymitis N45.1 Gross hematuria R31.0 Complicated urinary tract infection N39.0
[2024-06-08] MEDS: DOXYCYCLINE HYCLATE 100 MG CAP PO SCH (12:21)
[2024-06-08] MEDS: ACETAMINOPHEN 325 MG TAB PO PRN (14:46)
--- NOTE | 2024-06-08 15:36 | Hospitalist Progress Note ---
Date of Service June 08, 2024 Assessment & Plan (1) Complicated urinary tract infection: Plan: Patient is an 84 year-old male with past medical history significant for hypertension, lumbar spinal stenosis who recently had TURP procedure on 05/20/2024 comes because of fever and chills starting yesterday. He says he still passing blood clots in the urine. His scrotum is also tender. Denies any abdominal pain. Acute epididymitis--POA Complicated urinary tract infection Gross hematuria H/O recent TURP Patient admits to be sexually active currently --CT Abd:Severe mucosal thickening in the bladder consistent with cystitis. Foci of gas within the bladder. Prostate is heterogeneous with adjacent fat stranding. Hyperemic right epididymis consistent with epididymitis. Left-sided hydrocele. -- Urine culture growing E. coli (preliminary) Continue IV Rocephin Added doxycycline Follow-up cultures Appreciate urology input Monitor postvoid residual bladder scans to ensure complete emptying Monitor CBC Received IV fluids Hypertension Continue valsartan monitor BP DVT prophylaxis SCDs CODE STATUS Full code Admission and Anticipated Discharge Date Admission Date: June 08, 2024 Subjective Patient is seen and examined at bedside Chills, hematuria resolved Still has dysuria Reports testicular swelling, tenderness associated with erythema Denies any chest pain, dyspnea, nausea, vomiting, abdominal pain No other complaints Review of Systems Review of Systems: All systems reviewed & are unremarkable except as noted in Subjective Physical Exam Physical Exam: Physical Exam: Vitals signs as noted above General Appearance:Moderately built and nourished, no apparent distress Head: normocephalic, Atraumatic Eyes: normal inspection, EOMI Neck: supple, Trachea midline Respiratory/Chest: Normal breath sounds, CTA, No accessory muscle use Cardiovascular: S1, S2, No murmur Abdomen/GI:Soft, Non tender, Bowel sounds present : scrotal swelling/redness/tender Extremities/Musculoskeletal:normal inspection, no edema Neurologic/Psych:AAOX3, grossly no focal neurological deficits Skin: normal color, warm Results & Data Results & Data Vital Signs (Past 12 Hours) Vital Signs Temp Pulse Resp BP Pulse Ox O2 Del Method 06/08/24 14:36 37.8 C H 77 16 129/68 94 Room Air 06/08/24 07:23 36.4 C L 74 20 143/77 H 94 Room Air Laboratory Results Short CBC 06/07/24 06/08/24 Range/Units 16:57 05:34 WBC 14.95 H 11.78 H (4.8-10.8) K/ul Hgb 13.6 L 12.4 L (14.0-18.0) g/dl Hct 38.7 L 36.4 L (42.0-52.0) % Plt Count 151 139 (130-400) K/uL BMP 06/07/24 06/08/24 16:57 05:34 Sodium 140 140 Potassium 4.3 4.2 Chloride 105 106 Carbon Dioxide 27 26 BUN 32 H 28 H Creatinine 1.26 1.14 Glucose 128 H 112 H Calcium 9.3 8.9 Liver Function 06/07/24 Range/Units 16:57 Total Bilirubin 0.6 (0.2-1.0) mg/dl AST 20 (13-39) U/L ALT 17 (7-52) U/L Alkaline Phosphatase 75 (34-104) U/L Albumin 4.0 (3.4-5.0) gm/dl Urine 06/07/24 Range/Units 18:09 Urine Color Dark Yellow Urine Appearance Turbid A (Clear) Urine pH 5.5 (4.5-7.5) Ur Specific Dendron 1.025 (1.000-1.030) Urine Protein 2+ H (Negative) Urine Glucose (UA) Negative (Negative)
[2024-06-08] MEDS: cefTRIAXone SODIUM 2,000 MG/50 ML BAG IV SCH (20:31)
[2024-06-09] MEDS: POLYETHYLENE (MIRALAX) 17 GM PACK PO PRN (05:34)
[2024-06-09 06:44] LABS: Hemoglobin 12.7 g/dl (14.0-18.0); Mean Corpuscular Hgb Conc 34.3 g/dL (32.0-36.0); Mean Corpuscular Volume 93.2 fL (80.0-100.0); Mean Platelet Volume 10.9 fL (9.4-12.4); Platelet Count 137 K/uL (130-400); RDW Coefficient of Variation 12.3 % (11.5-14.5); RDW Standard Deviation 42.5 fL (36.4-46.3); Red Blood Count 3.97 M/uL (4.70-6.10); White Blood Count 7.68 K/ul (4.8-10.8)
[2024-06-09 07:02] LABS: Calcium 8.8 mg/dl (8.6-10.3); Creatinine Clr Calc Pharmacy 48.8 ml/min; Magnesium 1.9 mg/dl (1.7-2.4); Potassium 3.9 mmol/L (3.5-5.1)
--- NOTE | 2024-06-09 09:24 | Urology Progress Note ---
Date of Service June 09, 2024 Assessment & Plan (1) Acute epididymitis: (2) Complicated urinary tract infection: Plan 84-year-old male with UTI and epididymoorchitis s/p TURP. Would be reasonable to transition to oral antibiotics based on culture data, will likely need 2-week course of antibiotics No plan for surgical intervention at this time If he is feeling well, could potentially discharge home on oral antibiotics. Urology can arrange outpatient follow-up for wound check in the next 1-2 weeks Admission and Anticipated Discharge Date Admission Date: June 08, 2024 Subjective Feeling okay this morning Urine culture growing pansensitive E. coli, covered with ceftriaxone Denies any fevers or chills overnight Leukocytosis resolved (WBC 7.68) Feels like he is emptying his bladder well, PVRs have been reasonable. Still having some bilateral scrotal pain Physical Exam Physical Exam: Resting in bed, NAD Scrotum is tender to palpation, firm on the right side consistent with epididymoorchitis, tender to palpation on the left as well. No fluctuance or crepitus appreciated. Results & Data Vital Signs (Past 12 Hours) Vital Signs Temp Pulse Resp BP Pulse Ox O2 Del Method 06/09/24 07:26 36.8 C 69 16 143/76 H 96 Room Air PG Care Time/CCT Total # of Minutes Spent Total Time Spent with Patient: Total time spent is greater than 50% in coordination of care (as documented) at patient's floor/unit and/or counseling patient: Coding Level of Care Code 08147 SUB INP/OBS CARE 25MIN Diagnoses Acute epididymitis N45.1 Complicated urinary tract infection N39.0
--- NOTE | 2024-06-09 15:53 | Hospitalist Progress Note ---
Date of Service June 09, 2024 Assessment & Plan (1) Complicated urinary tract infection: Plan: Patient is an 84 year-old male with past medical history significant for hypertension, lumbar spinal stenosis who recently had TURP procedure on 05/20/2024 comes because of fever and chills starting yesterday. He says he still passing blood clots in the urine. His scrotum is also tender. Denies any abdominal pain. Acute epididymitis--POA Complicated urinary tract infection Gross hematuria H/O recent TURP Patient admits to be sexually active currently --CT Abd:Severe mucosal thickening in the bladder consistent with cystitis. Foci of gas within the bladder. Prostate is heterogeneous with adjacent fat stranding. Hyperemic right epididymis consistent with epididymitis. Left-sided hydrocele. -- Urine culture growing E. coli Continue IV Rocephin Added doxycycline Appreciate urology input Monitor postvoid residual bladder scans to ensure complete emptying Monitor CBC Received IV fluids Leukocytosis resolved Likely transition to oral antibiotics tomorrow Needs follow-up with urology on discharge Hypertension Continue valsartan monitor BP DVT prophylaxis SCDs CODE STATUS Full code Admission and Anticipated Discharge Date Admission Date: June 08, 2024 Subjective Patient is seen and examined at bedside Testicular swelling, tenderness, erythema slowly improving Less dysuria today Denies any chest pain, dyspnea, nausea, vomiting, abdominal pain Review of Systems Review of Systems: All systems reviewed & are unremarkable except as noted in Subjective Physical Exam Physical Exam: Physical Exam: Vitals signs as noted above General Appearance:Moderately built and nourished, no apparent distress Head: normocephalic, Atraumatic Eyes: normal inspection, EOMI Neck: supple, Trachea midline Respiratory/Chest: Normal breath sounds, CTA, No accessory muscle use Cardiovascular: S1, S2, No murmur Abdomen/GI:Soft, Non tender, Bowel sounds present : scrotal swelling/redness/tender Extremities/Musculoskeletal:normal inspection, no edema Neurologic/Psych:AAOX3, grossly no focal neurological deficits Skin: normal color, warm Results & Data Results & Data Vital Signs (Past 12 Hours) Vital Signs Temp Pulse Resp BP Pulse Ox O2 Del Method 06/09/24 14:36 37.1 C 74 16 148/75 H 94 Room Air 06/09/24 07:26 36.8 C 69 16 143/76 H 96 Room Air Laboratory Results Short CBC 06/09/24 Range/Units 05:35 WBC 7.68 (4.8-10.8) K/ul Hgb 12.7 L (14.0-18.0) g/dl Hct 37.0 L (42.0-52.0) % Plt Count 137 (130-400) K/uL BMP 06/09/24 05:35 Sodium 139 Potassium 3.9 Chloride 106 Carbon Dioxide 26 BUN 30 H Creatinine 1.11 Glucose 110 H Calcium 8.8
[2024-06-10 07:36] VITALS: BP 144/71; RESP 16; TEMP 97.5; O2SAT 95
[2024-06-10 07:59] LABS: Hematocrit (blood only) 38.7 % (42.0-52.0); Hemoglobin 13.4 g/dl (14.0-18.0); Mean Corpuscular Hemoglobin 31.6 pg (25.0-34.0); Mean Corpuscular Hgb Conc 34.6 g/dL (32.0-36.0); Mean Corpuscular Volume 91.3 fL (80.0-100.0); Mean Platelet Volume 10.4 fL (9.4-12.4); Platelet Count 151 K/uL (130-400); RDW Coefficient of Variation 12.3 % (11.5-14.5); RDW Standard Deviation 40.7 fL (36.4-46.3); Red Blood Count 4.24 M/uL (4.70-6.10); White Blood Count 6.51 K/ul (4.8-10.8)
[2024-06-10 08:15] LABS: BUN Creatinine Ratio 24.1 (10-20); Calcium 8.9 mg/dl (8.6-10.3); Creatinine Clr Calc Pharmacy 48.3 ml/min; Potassium 4.2 mmol/L (3.5-5.1)
[2024-06-10] MEDS: cefTRIAXone SODIUM 2,000 MG/50 ML BAG IV SCH (10:36)
--- NOTE | 2024-06-10 12:45 | Hospitalist Progress Note ---
Date of Service June 10, 2024 Assessment & Plan (1) Complicated urinary tract infection: Plan: Patient is an 84 year-old male with past medical history significant for hypertension, lumbar spinal stenosis who recently had TURP procedure on 05/20/2024 comes because of fever and chills starting yesterday. He says he still passing blood clots in the urine. His scrotum is also tender. Denies any abdominal pain. Acute epididymitis--POA Complicated urinary tract infection Gross hematuria H/O recent TURP Patient admits to be sexually active currently --CT Abd:Severe mucosal thickening in the bladder consistent with cystitis. Foci of gas within the bladder. Prostate is heterogeneous with adjacent fat stranding. Hyperemic right epididymis consistent with epididymitis. Left-sided hydrocele. -- Urine culture growing E. coli Continue IV Rocephin>> transition to Levaquin on discharge Added doxycycline Appreciate urology input Monitor postvoid residual bladder scans to ensure complete emptying Monitor CBC Received IV fluids Leukocytosis resolved Needs follow-up with urology on discharge Clinically improving, plan to discharge home today Hypertension Continue valsartan monitor BP DVT prophylaxis SCDs CODE STATUS Full code Admission and Anticipated Discharge Date Admission Date: June 08, 2024 Subjective Patient is seen and examined at bedside Less testicular swelling, tenderness, erythema today Denies any dysuria, hematuria today Denies any chest pain, dyspnea, nausea, vomiting, abdominal pain Afebrile today Plan to be discharged home today Review of Systems Review of Systems: All systems reviewed & are unremarkable except as noted in Subjective Physical Exam Physical Exam: Physical Exam: Vitals signs as noted above General Appearance:Moderately built and nourished, no apparent distress Head: normocephalic, Atraumatic Eyes: normal inspection, EOMI Neck: supple, Trachea midline Respiratory/Chest: Normal breath sounds, CTA, No accessory muscle use Cardiovascular: S1, S2, No murmur Abdomen/GI:Soft, Non tender, Bowel sounds present : scrotal swelling/redness/tender Extremities/Musculoskeletal:normal inspection, no edema Neurologic/Psych:AAOX3, grossly no focal neurological deficits Skin: normal color, warm Results & Data Results & Data Vital Signs (Past 12 Hours) Vital Signs Temp Pulse Resp BP Pulse Ox O2 Del Method 06/10/24 07:36 36.4 C L 67 16 144/71 H 95 Room Air Laboratory Results Short CBC 06/10/24 Range/Units 07:38 WBC 6.51 (4.8-10.8) K/ul Hgb 13.4 L (14.0-18.0) g/dl Hct 38.7 L (42.0-52.0) % Plt Count 151 (130-400) K/uL BMP 06/10/24 07:38 Sodium 140 Potassium 4.2 Chloride 106 Carbon Dioxide 28 BUN 27 H Creatinine 1.12 Glucose 116 H Calcium 8.9
--- NOTE | 2024-06-10 12:57 | Discharge Summary ---
Date of Service June 10, 2024 Admission HPI Per Admitting Provider 84-year-old male with past medical history significant for hypertension, lumbar spinal stenosis who recently had TURP procedure on 05/20/2024 comes because of fever and chills starting yesterday. He says he still passing blood clots in the urine. His scrotum is also tender. Denies any abdominal pain. Normal bowel movements. He denies any chest pain or shortness of breath. No cough. No headache no runny nose or sore throat. No headache. Currently resting comfortably and hemodynamically stable. Past med history. As mentioned above. Past surgical history. Anterior eye surgery. Colonoscopy. Incision of hip tendon. Bilateral cataracts. Sacroiliac joint injection. Social history. . No smoking. Alcohol 1 drink per day as per [employer]. No drug use. Family history. Mother had arthritis. Stroke. Father had stroke. TURP. Diabetes. Admission Exam Per Admitting Provider General- Not in distress. Head- atraumatic Eyes- PERRL. ENT- oropharynx clear Neck- supple, no JVD Lungs- clear to auscultation no wheezing or crackles Heart- regular rhythm; no murmur, no gallop. Abdomen- normal bowel sounds, soft, nontender, no distension. . Scrotum edematous and erythematous Extremities- no pretibial edema, no erythema seen. Neuro- alert, oriented ,PERRL, no facial palsy; no dysarthria; moves extremitie s Principal Diagnosis Acute epididymitis Complicated urinary tract infection Discharge Data Allergies Allergy/AdvReac Type Severity Reaction Status Date / Time No Known Allergies Allergy Verified 05/29/24 09:25 Consultations 06/07/24 21:40 ED Decision to Admit Stat 06/08/24 08:00 Consult Urology Routine Procedures Performed Laboratory Results WBC 6.51 K/ul (4.8-10.8) 06/10/24 07:38 RBC 4.24 M/uL (4.70-6.10) L 06/10/24 07:38 Hgb 13.4 g/dl (14.0-18.0) L 06/10/24 07:38 Hct 38.7 % (42.0-52.0) L 06/10/24 07:38 MCV 91.3 fL (80.0-100.0) 06/10/24 07:38 MCH 31.6 pg (25.0-34.0) 06/10/24 07:38 MCHC 34.6 g/dL (32.0-36.0) 06/10/24 07:38 RDW Std Deviation 40.7 fL (36.4-46.3) 06/10/24 07:38 RDW Coeff of Tracy 12.3 % (11.5-14.5) 06/10/24 07:38 Plt Count 151 K/uL (130-400) 06/10/24 07:38 MPV 10.4 fL (9.4-12.4) 06/10/24 07:38 Immature Gran % (Auto) 0.5 % 06/08/24 05:34 Neut % (Auto) 82.5 % 06/08/24 05:34 Lymph % (Auto) 7.3 % 06/08/24 05:34 Schleicher % (Auto) 7.7 % 06/08/24 05:34 Eos % (Auto) 1.7 % 06/08/24 05:34 Baso % (Auto) 0.3 % 06/08/24 05:34 Neut # (Auto) 9.71 K/uL (1.40-6.50) H 06/08/24 05:34 Lymph # (Auto) 0.86 K/uL (1.20-3.40) L 06/08/24 05:34 Schleicher # (Auto) 0.91 K/uL (0.11-0.59) H 06/08/24 05:34 Eos # (Auto) 0.20 K/uL (0.00-0.50) 06/08/24 05:34 Baso # (Auto) 0.04 K/uL (0.00-0.20) 06/08/24 05:34 Immature Gran # (Auto) 0.06 K/uL (0.01-0.20) 06/08/24 05:34 PT 11.6 Seconds (9.0-12.0) 06/07/24 16:57 INR 1.1 (0.9-1.1) 06/07/24 16:57 APTT 28 Seconds (21-31) 06/07/24 16:57 PTT Ratio 1.0 06/07/24 16:57 Sodium 140 mmol/L (136-145) 06/10/24 07:38 Potassium 4.2 mmol/L (3.5-5.1) 06/10/24 07:38 Chloride 106 mmol/L (98-107) 06/10/24 07:38 Carbon Dioxide 28 mmol/L (21-32) 06/10/24 07:38 Anion Gap 6 (3-11) 06/10/24 07:38 BUN 27 mg/dl (6-23) H 06/10/24 07:38 Creatinine 1.12 mg/dl (0.6-1.4) 06/10/24 07:38 Est Cr Clr Drug Dosing 48.3 ml/min 06/10/24 07:38 eGFR 65.18 06/10/24 07:38 BUN/Creatinine Ratio 24.1 (10-20) H 06/10/24 07:38 Glucose 116 mg/dl (70-99(Fasting)) H 06/10/24 07:38 Lactate 1.2 mmol/L (0.4-2.0) 06/07/24 18:35 Calcium 8.9 mg/dl (8.6-10.3) 06/10/24 07:38 Magnesium 1.9 mg/dl (1.7-2.4) 06/09/24 05:35 Total Bilirubin 0.6 mg/dl (0.2-1.0) 06/07/24 16:57 AST 20 U/L (13-39) 06/07/24 16:57 ALT 17 U/L (7-52) 06/07/24 16:57 Alkaline Phosphatase 75 U/L (34-104) 06/07/24 16:57 Total Protein 7.3 gm/dl (6.0-8.3) 06/07/24 16:57 Albumin 4.0 gm/dl (3.4-5.0) 06/07/24 16:57 Globulin 3.3 gm/dl (2.5-4.0) 06/07/24 16:57 Albumin/Globulin Ratio 1.2 (0.9-2) 06/07/24 16:57 Procalcitonin 0.25 ng/ml (0-0.5) 06/07/24 16:57 Urine Color Dark Yellow 06/07/24 18:09 Urine Appearance Turbid (Clear) A 06/07/24 18:09 Urine pH 5.5 (4.5-7.5) 06/07/24 18:09 Ur Specific [place] 1.025 (1.000-1.030) 06/07/24 18:09 Urine Protein 2+ (Negative) H 06/07/24 18:09 Urine Glucose (UA) Negative (Negative) 06/07/24 18:09 Urine Ketones Trace (Negative) H 06/07/24 18:09 Urine Blood 3+ (Negative) H 06/07/24 18:09 Urine Nitrite Positive (Negative) A 06/07/24 18:09 Urine Bilirubin Negative (Negative) 06/07/24 18:09 Urine Urobilinogen Negative (Negative) 06/07/24 18:09 Ur Leukocyte Esterase 3+ (Negative) H 06/07/24 18:09 Urine WBC (Auto) >50 /hpf (0-5) H 06/07/24 18:09 Urine RBC (Auto) >20 /hpf (0-2) H 06/07/24 18:09 U Hyaline Cast (Auto) 6-10 /lpf (0-2) H 06/07/24 18:09 U Epithel Cells (Auto) 0-2 /hpf (0-2) 06/07/24 18:09 Urine Bacteria (Auto) 3+ (None Seen) H 06/07/24 18:09 Hyaline Casts Present /lpf (None Presnt) A 06/07/24 18:09 Adenovirus (PCR) Not Detected (NotDetected) 06/07/24 18:36 B. pertussis DNA (PCR) Not Detected (NotDetected) 06/07/24 18:36 B.parapertussis DNA PCR Not Detected (NotDetected) 06/07/24 18:36 C. pneumoniae DNA (PCR) Not Detected (NotDetected) 06/07/24 18:36 Coronavirus OC43 (PCR) Not Detected (NotDetected) 06/07/24 18:36 Coronavirus HKU1 (PCR) Not Detected (NotDetected) 06/07/24 18:36 Coronavirus 229E (PCR) Not Detected (NotDetected) 06/07/24 18:36 SARS-CoV-2 (PCR) Not Detected (NotDetected) 06/07/24 18:36 Coronavirus NL63 (PCR) Not Detected (NotDetected) 06/07/24 18:36 Human Metapneumovir PCR Not Detected (NotDetected) 06/07/24 18:36 Influenza Type A (PCR) Not Detected (NotDetected) 06/07/24 18:36 Influenza Type B (PCR) Not Detected (NotDetected) 06/07/24 18:36 M. pneumoniae (PCR) Not Detected (NotDetected) 06/07/24 18:36 Parainfluenza 1 (PCR) Not Detected (NotDetected) 06/07/24 18:36 Parainfluenza 2 (PCR) Not Detected (NotDetected) 06/07/24 18:36 Parainfluenza 3 (PCR) Not Detected (NotDetected) 06/07/24 18:36 Parainfluenza 4 (PCR) Not Detected (NotDetected) 06/07/24 18:36 RSV (PCR) Not Detected (NotDetected) 06/07/24 18:36 Entero/Rhino (PCR) Not Detected (NotDetected) 06/07/24 18:36 Impressions Abdomen/Pelvis CT 06/07/24 18:26 Exam(s): CT ABDOMEN + PELVIS With Contrast IV Amt: 93ml opti 320 EXAM: CT Abdomen and Pelvis With Intravenous Contrast CLINICAL HISTORY: Reason for exam: scrotal pain; fevers/chills. TECHNIQUE: Axial computed tomography images of the abdomen and pelvis with intravenous contrast. CTDI is 34 mGy and DLP is 1225.45 mGy-cm. Automated exposure control was utilized for the study. A dose lowering technique was utilized adhering to the principles of ALARA. CONTRAST: Patient received 93ml opti 320 of IV contrast COMPARISON: No relevant prior studies available. FINDINGS: ABDOMEN: Liver: Innumerable cysts within the liver. Gallbladder and bile ducts: Unremarkable. Pancreas: Sequela of chronic pancreatitis. Spleen: Unremarkable. Adrenals: Unremarkable. Kidneys and ureters: No evidence of pyelonephritis. Stomach and bowel: Unremarkable. PELVIS: Appendix: No findings to suggest acute appendicitis. Bladder: Severe mucosal thickening in the bladder consistent with cystitis. Foci of gas within the bladder. Reproductive: Prostate is heterogeneous with adjacent fat stranding. Left-sided hydrocele. Hyperemic right epididymis consistent with epididymitis. ABDOMEN and PELVIS: Intraperitoneal space: Unremarkable. No free air. No significant fluid collection. Bones/joints: Degenerative changes in the lumbar spine. Soft tissues: Unremarkable. Vasculature: Unremarkable. Lymph nodes: Unremarkable. IMPRESSION: 1. Severe mucosal thickening in the bladder consistent with cystitis. Foci of gas within the bladder. 2. Prostate is heterogeneous with adjacent fat stranding. 3. Hyperemic right epididymis consistent with epididymitis. 4. Left-sided hydrocele. Electronically signed by: Marlon Scott MD 06/07/24 20:39 PM Ordered Studies 06/07/24 18:26 CT Abd and Pelvis [CT abd pelvis IV con only] Stat Hospital Course (1) Complicated urinary tract infection: Patient is an 84 year-old male with past medical history significant for hypertension, lumbar spinal stenosis who recently had TURP procedure on 05/20/2024 comes because of fever and chills starting yesterday. He says he still passing blood clots in the urine. His scrotum is also tender. Denies any abdominal pain. Acute epididymitis--POA Complicated urinary tract infection Gross hematuria H/O recent TURP Patient admits to be sexually active currently --CT Abd:Severe mucosal thickening in the bladder consistent with cystitis. Foci of gas within the bladder. Prostate is heterogeneous with adjacent fat stranding. Hyperemic right epididymis consistent with epididymitis. Left-sided hydrocele. -- Urine culture growing E. coli Continue IV Rocephin>> transition to Levaquin on discharge Appreciate urology input Monitor postvoid residual bladder scans to ensure complete emptying Monitor CBC Received IV fluids Leukocytosis resolved Needs follow-up with urology on discharge Clinically improving, plan to discharge home today Hypertension Continue valsartan monitor BP DVT prophylaxis SCDs CODE STATUS Full code Total Time Total Time Spent Total Time Spent (In Minutes): 45 minutes Discharge Plan Discharge Items Patient Disposition: Home - Self-Care Reason For Visit: ACUTE UTI Discharge Diagnosis: Acute epididymitis Complicated urinary tract infection Activity: Per Instructions section Exercise/Sports: Gradually increase as tolerated Non-emergency contact: Primary Care Provider and Urologist Call non-emergency contact if: you have any medication questions, your symptoms worsen, your pain is concerning for you and you have a fever Follow-up/Referrals: Shekhar Fitzpatrick MD [Physician] - (The Urology office will call you with a follow up appointment for 1-2 weeks from discharge. ) Ronni Cabral MD [Primary Care Provider] - (Date & Time 06/14/2024 9:00 AM Provider: Dominique Dumont MD Department: [facility] ) Diet: Heart Healthy Addtl Attending Provider Instructions: Follow-up with the primary care physician Dr. Cabral in 1 week Follow-up with your urologist as advised -- Complete the antibiotic course as prescribed. (Start taking levofloxacin from 06/11/2024) Seek immediate medical attention if your symptoms reoccur or worsen Please take all medications as instructed on discharge list below. Please call if you have any questions or problems. You can reach a [facility] ospitalist on duty at [facility] 24 hours a day by calling [phone] Pending Studies at Discharge: No Stand-Alone Forms: [facility] [email or web address], Smoking Cessation Medications and DC Order Prescriptions: New levofloxacin 500 mg tablet 500 mg PO DAILY 10 Days Qty: 10 0RF Continued fexofenadine [Clara Allergy] 60 mg tablet 60 mg PO .COMPLEX Rx Instructions: 60 mg orally once a week; magnesium 250 mg tablet 250 mg PO DAILY sildenafil [Viagra] 50 mg Tablet 50 mg PO DAILY PRN (Reason: Erectile Dysfunction) Rx Instructions: administer 30 minutes to 4 hours before activity zolpidem [Ambien] 10 mg Tablet 10 mg PO HS PRN (Reason: traveling) valsartan 160 mg Tablet 160 mg PO QAM melatonin 3 mg Tablet 3 mg PO HS PRN (Reason: Sleep) melatonin 5 mg Tablet 5 mg PO HS PRN (Reason: Sleep) Discharge Orders: Discharge Order (Routine); Ordered 06/10/24 Ordered By: Joe Figueroa Admission Data Admit Date/Time: 06/08/24 00:41 Attending Provider: Joe Figueroa Admit Provider: Brijesh Connolly Primary Care Provider: Ronni Cabral Other Providers: Brijesh Connolly; Tommy Jim; Sheila Mock; Kelby Marion; Leandra Mojica Melissa A.; Shekhar Fitzpatrick; Ginny Dumont; William Monge; Peyman Vences; Stanley Muse
[2024-06-10 13:09] VITALS: PULSE 64
== END 2024-06-10 13:55 | disposition home or self-care (01) | DRG 728 ==
LOC: ED 16:18 → 3W 06-08 00:41

== ENCOUNTER 2024-09-02 18:54 | Inpatient (IN) ==
--- NOTE | 2024-09-02 19:31 | Emergency Department Note ---
Impression & Plan Complicated urinary tract infection, Leukocytosis, DIONNA (acute kidney injury), Thrombocytopenia ED Provider Note HISTORY OF PRESENT ILLNESS: Patient is an 84-year-old male presenting with weakness and fevers. Patient reports that starting last night he had a fever of 101 and chills. He is concerned he has an urinary tract infection. He states he gets like this when he has a UTI. He denies taking any antipyretics prior to arrival in the emergency department. He states he feels very weak and had difficulties getting around today. He denies any abdominal pain. Denies any nausea or vomiting. He states that he has urinary frequency and urinary incontinence since his TURP procedure in May. He denies any recent antibiotic use in the last 2 weeks. Denies any chest pain or shortness of breath. Denies any recent sick contact exposures. Denies any recent falls or head injuries. ROS: as above PHYSICAL EXAM: Constitutional: Patient appears in no acute distress. HENT: Head: Normocephalic and atraumatic. Eyes: EOMI, PERRL Mouth/Throat: Mucous membranes dry. Neck: Trachea midline. Neck supple. Cardiovascular: RRR, No murmurs, rubs or gallops. Intact distal pulses. Pulmonary/Chest: No respiratory distress. Breath sounds clear and equal bilaterally. No wheezes or rales. Abdominal: Abdomen soft, no tenderness, rebound or guarding. Musculoskeletal: No edema, tenderness or deformity noted. Skin: Warm and dry. No rash, erythema, pallor or cyanosis Psychiatric: Appropriate mood and affect for situation. Neurological: Alert and keenly responsive. CN II-XII grossly intact, moving all extremities equally and fully. MDM: - Vitals signs stable - History obtained via patient. History as above. - Chronic conditions affecting care: BPH; HTN - Differential diagnoses include, but are not limited to: UTI; sepsis; pyelonephritis; ureteral stone - Order placed for continuous cardiac monitoring. At this time, monitor showed rate of 84 bpm with normal sinus rhythm, per my interpretation. - External medical records reviewed. Discharge summary dated 06/10/2024 was reviewed. Patient was admitted at that time for acute epididymitis and complicated UTI. - EKG image interpreted by myself showed normal sinus rhythm. Rate 85 bpm. QT 346. No acute ischemic changes. - Laboratory workup interpreted by myself showed leukocytosis (WBC 15.01) with neutrophil predominance; thrombocytopenia (plt 106); normal lactate; stable electrolytes; DIONNA (Cr 1.42); hyperglycemia (glucose 215) with normal anion gap; normal procalcitonin - Blood cultures obtained - UA showed evidence of infection. - Urine culture from 06/07/2024 grew pansensitive E. coli. Urine culture from 06/28/2024 grew Enterococcus faecalis that was resistant to tetracycline. Patient has an allergy to Levaquin. - Discussed case with pharmacist real estate economist, who recommended Unasyn for antibiotic coverage. Reports that the Enterococcus was sensitive to Unasyn and has great data on the antibiogram. E. coli was also noted to be sensitive, though slightly less responsive in the community susceptibility. - Patient given 1L NS - CT abdomen/pelvis with IV contrast showed no acute abnormality. - Discussion was had with nurse case manager about patient's case and need for admission - Hospitalist, Dr. Buitrago, consulted for admission - Patient admitted to [facility] for further evaluation and management. ASSESSMENT AND PLAN: Diagnosis: complicated UTI; leukocytosis; DIONNA; thrombocytopenia Plan: Admit Past Med/Surg History Problem List (Updated 09/02/24 @ 21:23 by Debora Silva MD) Thrombocytopenia (Acute) DIONNA (acute kidney injury) (Acute) Leukocytosis (Acute) Complicated urinary tract infection (Acute) Incontinence (Acute) Acute epididymitis (Acute) Complicated urinary tract infection (Acute) Prostate cancer (Acute) Gross hematuria Erectile dysfunction (Chronic) Elevated prostate specific antigen (PSA) (Chronic) BPH with obstruction/lower urinary tract symptoms (Chronic) Medical History Encounter for pre-operative examination Degenerative disc disease Pancreas cyst Liver cyst BPH (benign prostatic hyperplasia) Hypertension Nocturia Spinal stenosis Urinary frequency Surgical History S/P TURP History of cataract surgery H/O removal of cyst History of colonoscopy History of prostate surgery Hx of tonsillectomy Family History Father Diabetes H/O prostatectomy Mother Arthritis Grandmother (Maternal) Stomach cancer, Onset Age: 55 Grandfather (Maternal) Stomach cancer, Onset Age: 65 Other Hypertension No family history of adverse response to anesthesia Social History Smoking Status: Never smoker Second Hand Exposure: No; Do You Dip or Chew Tobacco: No; Hx Alcohol Use: Yes Alcohol type: wine Alcohol Intake Frequency: 4 or More x per/Week Hx Substance Use: No Preferred Language: Georgian Communication Ability: Effective Celery Cutter Required: No Beliefs That Will Affect Care: None marital status: Current Living Situation: Spouse 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al status: retired 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: [employer] department How many Children do You have: 2 Feels Safe at Home: Yes Assistive Devices: None Allergies Allergies Allergy/AdvReac Type Severity Reaction Status Date / Time levofloxacin AdvReac Severe tendonitis Verified 09/02/24 20:22 Home Meds Home Medications Medication Instructions Recorded Confirmed melatonin 5 mg tablet 5 mg PO HS PRN Sleep 05/06/24 09/02/24 valsartan 160 mg tablet 160 mg PO QAM 05/06/24 09/02/24 magnesium 250 mg tablet 250 mg PO DAILY 06/06/24 09/02/24 trazodone 100 mg tablet 100 mg PO DAILY 08/28/24 09/02/24 calcium polycarbophil 625 mg 625 mg PO DAILY PRN Constipation 09/02/24 09/02/24 tablet (Fiber (calcium polycarbophil)) docusate sodium 100 mg capsule 100 - 200 mg PO DAILY PRN 09/02/24 09/02/24 (Stool Softener) Constipation inulin 1.7 gram chewable tablet 3.4 g PO DAILY PRN Constipation 09/02/24 09/02/24 (Fiber Gummies) magnesium hydroxide 400 mg/5 mL 15 - 45 ml PO DAILY PRN 09/02/24 09/02/24 oral suspension (Milk of Magnesia) Constipation Results & Data (ED) Vital Signs Vital Signs - 24 hr 09/02/24 19:02 09/02/24 19:08 09/02/24 19:08 Temperature 37.4 C Temperature Source Oral Pulse Rate 97 H Respiratory Rate 20 Respiratory Effort / Characteristics Non-Labored Spontaneous Respiratory Depth Normal Blood Pressure 138/85 146/75 H 146/75 H Blood Pressure Mean 102 117 117 Pulse Oximetry 94 Oxygen Delivery Method Room Air Sepsis Recent Fever Within 48 Hours Yes Sepsis New/Unexplained Change in Mental Status No Sepsis Action Taken by Nursing No Action Required 09/02/24 19:08 09/02/24 19:08 09/02/24 19:08 Temperature Temperature Source Pulse Rate Respiratory Rate Respiratory Effort / Characteristics Respiratory Depth Blood Pressure 146/75 H 146/75 H 146/75 H Blood Pressure Mean 117 117 117 Pulse Oximetry Oxygen Delivery Method Sepsis Recent Fever Within 48 Hours Sepsis New/Unexplained Change in Mental Status Sepsis Action Taken by Nursing 09/02/24 19:08 09/02/24 19:08 09/02/24 19:08 Temperature Temperature Source Pulse Rate Respiratory Rate Respiratory Effort / Characteristics Respiratory Depth Blood Pressure 146/75 H 146/75 H 146/75 H Blood Pressure Mean 117 117 117 Pulse Oximetry Oxygen Delivery Method Sepsis Recent Fever Within 48 Hours Sepsis New/Unexplained Change in Mental Status Sepsis Action Taken by Nursing 09/02/24 19:08 09/02/24 19:08 09/02/24 19:08 Temperature Temperature Source Pulse Rate Respiratory Rate Respiratory Effort / Characteristics Respiratory Depth Blood Pressure 146/75 H 146/75 H 146/75 H Blood Pressure Mean 117 117 117 Pulse Oximetry Oxygen Delivery Method Sepsis Recent Fever Within 48 Hours Sepsis New/Unexplained Change in Mental Status Sepsis Action Taken by Nursing 09/02/24 19:08 09/02/24 19:08 09/02/24 19:08 Temperature Temperature Source Pulse Rate Respiratory Rate Respiratory Effort / Characteristics Respiratory Depth Blood Pressure 146/75 H 146/75 H 146/75 H Blood Pressure Mean 117 117 117 Pulse Oximetry Oxygen Delivery Method Sepsis Recent Fever Within 48 Hours Sepsis New/Unexplained Change in Mental Status Sepsis Action Taken by Nursing 09/02/24 19:08 09/02/24 19:08 09/02/24 19:08 Temperature Temperature Source Pulse Rate Respiratory Rate Respiratory Effort / Characteristics Respiratory Depth Blood Pressure 146/75 H 146/75 H 146/75 H Blood Pressure Mean 117 117 117 Pulse Oximetry Oxygen Delivery Method Sepsis Recent Fever Within 48 Hours Sepsis New/Unexplained Change in Mental Status Sepsis Action Taken by Nursing 09/02/24 19:08 09/02/24 19:08 09/02/24 19:11 Temperature Temperature Source Pulse Rate 89 Respiratory Rate Respiratory Effort / Characteristics Respiratory Depth Blood Pressure 146/75 H 146/75 H Blood Pressure Mean 117 117 Pulse Oximetry Oxygen Delivery Method Sepsis Recent Fever Within 48 Hours Sepsis New/Unexplained Change in Mental Status Sepsis Action Taken by Nursing 09/02/24 19:15 09/02/24 19:27 09/02/24 19:31 Temperature Temperature Source Pulse Rate 85 Respiratory Rate 24 Respiratory Effort / Characteristics Non-Labored Respiratory Depth Normal Blood Pressure Blood Pressure Mean Pulse Oximetry Oxygen Delivery Method Room Air Sepsis Recent Fever Within 48 Hours Sepsis New/Unexplained Change in Mental Status Sepsis Action Taken by Nursing 09/02/24 19:33 09/02/24 19:42 09/02/24 19:51 Temperature Temperature Source Pulse Rate 89 86 84 Respiratory Rate 19 21 21 Respiratory Effort / Characteristics Respiratory Depth Blood Pressure Blood Pressure Mean Pulse Oximetry Oxygen Delivery Method Sepsis Recent Fever Within 48 Hours Sepsis New/Unexplained Change in Mental Status Sepsis Action Taken by Nursing 09/02/24 20:03 09/02/24 20:10 09/02/24 20:10 Temperature Temperature Source Pulse Rate 82 Respiratory Rate 24 Respiratory Effort / Characteristics Respiratory Depth Blood Pressure 136/67 136/67 136/67 Blood Pressure Mean 90 99 99 Pulse Oximetry Oxygen Delivery Method Sepsis Recent Fever Within 48 Hours Sepsis New/Unexplained Change in Mental Status Sepsis Action Taken by Nursing 09/02/24 20:10 09/02/24 20:10 09/02/24 20:10 Temperature Temperature Source Pulse Rate Respiratory Rate Respiratory Effort / Characteristics Respiratory Depth Blood Pressure 136/67 136/67 136/67 Blood Pressure Mean 99 99 99 Pulse Oximetry Oxygen Delivery Method Sepsis Recent Fever Within 48 Hours Sepsis New/Unexplained Change in Mental Status Sepsis Action Taken by Nursing 09/02/24 20:10 09/02/24 20:12 09/02/24 20:15 Temperature Temperature Source Pulse Rate 85 85 Respiratory Rate 20 25 H Respiratory Effort / Characteristics Respiratory Depth Blood Pressure 136/67 Blood Pressure Mean 99 Pulse Oximetry Oxygen Delivery Method Sepsis Recent Fever Within 48 Hours Sepsis New/Unexplained Change in Mental Status Sepsis Action Taken by Nursing 09/02/24 20:30 09/02/24 20:30 09/02/24 20:30 Temperature Temperature Source Pulse Rate Respiratory Rate Respiratory Effort / Characteristics Respiratory Depth Blood Pressure 138/70 138/70 138/70 Blood Pressure Mean 100 100 100 Pulse Oximetry Oxygen Delivery Method Sepsis Recent Fever Within 48 Hours Sepsis New/Unexplained Change in Mental Status Sepsis Action Taken by Nursing 09/02/24 20:30 09/02/24 20:30 09/02/24 20:30 Temperature Temperature Source Pulse Rate Respiratory Rate Respiratory Effort / Characteristics Respiratory Depth Blood Pressure 138/70 138/70 138/70 Blood Pressure Mean 100 100 100 Pulse Oximetry Oxygen Delivery Method Sepsis Recent Fever Within 48 Hours Sepsis New/Unexplained Change in Mental Status Sepsis Action Taken by Nursing 09/02/24 20:30 09/02/24 20:30 09/02/24 20:45 Temperature Temperature Source Pulse Rate 80 Respiratory Rate 21 Respiratory Effort / Characteristics Respiratory Depth Blood Pressure 138/70 138/70 Blood Pressure Mean 100 100 Pulse Oximetry 96 Oxygen Delivery Method Sepsis Recent Fever Within 48 Hours Sepsis New/Unexplained Change in Mental Status Sepsis Action Taken by Nursing 09/02/24 21:00 09/02/24 21:00 09/02/24 21:00 Temperature Temperature Source Pulse Rate Respiratory Rate Respiratory Effort / Characteristics Respiratory Depth Blood Pressure 137/75 137/75 137/75 Blood Pressure Mean 101 101 101 Pulse Oximetry Oxygen Delivery Method Sepsis Recent Fever Within 48 Hours Sepsis New/Unexplained Change in Mental Status Sepsis Action Taken by Nursing 09/02/24 21:00 09/02/24 21:00 09/02/24 21:00 Temperature Temperature Source Pulse Rate Respiratory Rate Respiratory Effort / Characteristics Respiratory Depth Blood Pressure 137/75 137/75 137/75 Blood Pressure Mean 101 101 101 Pulse Oximetry Oxygen Delivery Method Sepsis Recent Fever Within 48 Hours Sepsis New/Unexplained Change in Mental Status Sepsis Action Taken by Nursing 09/02/24 21:00 09/02/24 21:00 09/02/24 21:00 Temperature Temperature Source Pulse Rate Respiratory Rate Respiratory Effort / Characteristics Respiratory Depth Blood Pressure 137/75 137/75 137/75 Blood Pressure Mean 101 101 101 Pulse Oximetry Oxygen Delivery Method Sepsis Recent Fever Within 48 Hours Sepsis New/Unexplained Change in Mental Status Sepsis Action Taken by Nursing 09/02/24 21:00 09/02/24 21:00 09/02/24 21:21 Temperature Temperature Source Pulse Rate 78 Respiratory Rate 23 Respiratory Effort / Characteristics Respiratory Depth Blood Pressure 137/75 137/75 Blood Pressure Mean 101 101 Pulse Oximetry Oxygen Delivery Method Sepsis Recent Fever Within 48 Hours Sepsis New/Unexplained Change in Mental Status Sepsis Action Taken by Nursing 09/02/24 21:30 09/02/24 21:31 Temperature Temperature Source Pulse Rate 84 Respiratory Rate Respiratory Effort / Characteristics Respiratory Depth Blood Pressure 147/71 H Blood Pressure Mean 117 Pulse Oximetry Oxygen Delivery Method Sepsis Recent Fever Within 48 Hours Sepsis New/Unexplained Change in Mental Status Sepsis Action Taken by Nursing Laboratory Data 09/02/24 19:14 09/02/24 19:14 Lab Results 09/02/24 09/02/24 09/02/24 Range/Units 19:14 19:17 19:20 WBC 15.01 H (4.8-10.8) K/ul RBC 4.30 L (4.70-6.10) M/uL Hgb 13.8 L (14.0-18.0) g/dl Hct 39.2 L (42.0-52.0) % MCV 91.2 (80.0-100.0) fL MCH 32.1 (25.0-34.0) pg MCHC 35.2 (32.0-36.0) g/dL RDW Std Deviation 45.0 (36.4-46.3) fL RDW Coeff of [place] 13.5 (11.5-14.5) % Plt Count 106 L (130-400) K/uL MPV 11.2 (9.4-12.4) fL Immature Gran % (Auto) 0.6 % Neut % (Auto) 94.2 % Lymph % (Auto) 1.5 % [place] % (Auto) 3.5 % Eos % (Auto) 0.0 % Baso % (Auto) 0.2 % Neut # (Auto) 14.14 H (1.40-6.50) K/uL Lymph # (Auto) 0.22 L (1.20-3.40) K/uL [place] # (Auto) 0.53 (0.11-0.59) K/uL Eos # (Auto) 0.00 (0.00-0.50) K/uL Baso # (Auto) 0.03 (0.00-0.20) K/uL Immature Gran # (Auto) 0.09 (0.01-0.20) K/uL Sodium 140 (136-145) mmol/L Potassium 4.5 (3.5-5.1) mmol/L Chloride 106 (98-107) mmol/L Carbon Dioxide 27 (21-32) mmol/L Anion Gap 7 (3-11) BUN 37 H (6-23) mg/dl Creatinine 1.42 H (0.6-1.4) mg/dl Est Cr Clr Drug Dosing 35.6 ml/min eGFR 49.03 BUN/Creatinine Ratio 26.1 H (10-20) Glucose 215 H (70-99(Fasting)) mg/dl Lactate (0.4-2.0) mmol/L Calcium 9.2 (8.6-10.3) mg/dl Total Bilirubin 1.0 (0.2-1.0) mg/dl AST 24 (13-39) U/L ALT 20 (7-52) U/L Alkaline Phosphatase 55 (34-104) U/L Total Protein 6.7 (6.0-8.3) gm/dl Albumin 4.3 (3.4-5.0) gm/dl Globulin 2.4 L (2.5-4.0) gm/dl Albumin/Globulin Ratio 1.8 (0.9-2) Lipase 7 L (11-82) U/L Procalcitonin 0.26 (0-0.5) ng/ml Urine Color Yellow Urine Appearance Cloudy A (Clear) Urine pH 8.5 H (4.5-7.5) Ur Specific [place] 1.026 (1.000-1.030) Urine Protein 2+ H (Negative) Urine Glucose (UA) Negative (Negative) Urine Ketones Trace H (Negative) Urine Blood 1+ H (Negative) Urine Nitrite Negative (Negative) Urine Bilirubin Negative (Negative) Urine Urobilinogen Negative (Negative) Ur Leukocyte Esterase 3+ H (Negative) Urine WBC (Auto) >50 H (0-5) /hpf Urine RBC (Auto) 11-20 H (0-2) /hpf U Hyaline Cast (Auto) 0-2 (0-2) /lpf U Epithel Cells (Auto) 0-2 (0-2) /hpf Urine Bacteria (Auto) None Seen (None Seen) Adenovirus (PCR) Not Detected (NotDetected) B. pertussis DNA (PCR) Not Detected (NotDetected) B.parapertussis DNA PCR Not Detected (NotDetected) C. pneumoniae DNA (PCR) Not Detected (NotDetected) Coronavirus OC43 (PCR) Not Detected (NotDetected) Coronavirus HKU1 (PCR) Not Detected (NotDetected) Coronavirus 229E (PCR) Not Detected (NotDetected) SARS-CoV-2 (PCR) Not Detected (NotDetected) Coronavirus NL63 (PCR) Not Detected (NotDetected) Human Metapneumovir PCR Not Detected (NotDetected) Influenza Type A (PCR) Not Detected (NotDetected) Influenza Type B (PCR) Not Detected (NotDetected) M. pneumoniae (PCR) Not Detected (NotDetected) Parainfluenza 1 (PCR) Not Detected (NotDetected) Parainfluenza 2 (PCR) Not Detected (NotDetected) Parainfluenza 3 (PCR) Not Detected (NotDetected) Parainfluenza 4 (PCR) Not Detected (NotDetected) RSV (PCR) Not Detected (NotDetected) Entero/Rhino (PCR) Not Detected (NotDetected) 09/02/24 Range/Units 19:33 WBC (4.8-10.8) K/ul RBC (4.70-6.10) M/uL Hgb (14.0-18.0) g/dl Hct (42.0-52.0) % MCV (80.0-100.0) fL MCH (25.0-34.0) pg MCHC (32.0-36.0) g/dL RDW Std Deviation (36.4-46.3) fL RDW Coeff of [place] (11.5-14.5) % Plt Count (130-400) K/uL MPV (9.4-12.4) fL Immature Gran % (Auto) % Neut % (Auto) % Lymph % (Auto) % [place] % (Auto) % Eos % (Auto) % Baso % (Auto) % Neut # (Auto) (1.40-6.50) K/uL Lymph # (Auto) (1.20-3.40) K/uL [place] # (Auto) (0.11-0.59) K/uL Eos # (Auto) (0.00-0.50) K/uL Baso # (Auto) (0.00-0.20) K/uL Immature Gran # (Auto) (0.01-0.20) K/uL Sodium (136-145) mmol/L Potassium (3.5-5.1) mmol/L Chloride (98-107) mmol/L Carbon Dioxide (21-32) mmol/L Anion Gap (3-11) BUN (6-23) mg/dl Creatinine (0.6-1.4) mg/dl Est Cr Clr Drug Dosing ml/min eGFR BUN/Creatinine Ratio (10-20) Glucose (70-99(Fasting)) mg/dl Lactate 1.7 (0.4-2.0) mmol/L Calcium (8.6-10.3) mg/dl Total Bilirubin (0.2-1.0) mg/dl AST (13-39) U/L ALT (7-52) U/L Alkaline Phosphatase (34-104) U/L Total Protein (6.0-8.3) gm/dl Albumin (3.4-5.0) gm/dl Globulin (2.5-4.0) gm/dl Albumin/Globulin Ratio (0.9-2) Lipase (11-82) U/L Procalcitonin (0-0.5) ng/ml Urine Color Urine Appearance (Clear) Urine pH (4.5-7.5) Ur Specific [place] (1.000-1.030) Urine Protein (Negative) Urine Glucose (UA) (Negative) Urine Ketones (Negative) Urine Blood (Negative) Urine Nitrite (Negative) Urine Bilirubin (Negative) Urine Urobilinogen (Negative) Ur Leukocyte Esterase (Negative) Urine WBC (Auto) (0-5) /hpf Urine RBC (Auto) (0-2) /hpf U Hyaline Cast (Auto) (0-2) /lpf U Epithel Cells (Auto) (0-2) /hpf Urine Bacteria (Auto) (None Seen) Adenovirus (PCR) (NotDetected) B. pertussis DNA (PCR) (NotDetected) B.parapertussis DNA PCR (NotDetected) C. pneumoniae DNA (PCR) (NotDetected) Coronavirus OC43 (PCR) (NotDetected) Coronavirus HKU1 (PCR) (NotDetected) Coronavirus 229E (PCR) (NotDetected) SARS-CoV-2 (PCR) (NotDetected) Coronavirus NL63 (PCR) (NotDetected) Human Metapneumovir PCR (NotDetected) Influenza Type A (PCR) (NotDetected) Influenza Type B (PCR) (NotDetected) M. pneumoniae (PCR) (NotDetected) Parainfluenza 1 (PCR) (NotDetected) Parainfluenza 2 (PCR) (NotDetected) Parainfluenza 3 (PCR) (NotDetected) Parainfluenza 4 (PCR) (NotDetected) RSV (PCR) (NotDetected) Entero/Rhino (PCR) (NotDetected) Administered Medications Discontinued Medications Sodium Chloride (Nss) 1,000 mls @ 999 mls/hr IV .[id number] ONE Stop: 09/02/24 20:53 Last Admin: 09/02/24 20:02 Dose: 999 mls/hr Documented By: NADIA Ampicillin Sodium/Sulbactam Sodium (Unasyn) 3,000 mg in 100 mls @ 200 mls/hr IV NOW STA Stop: 09/02/24 21:38 Last Admin: 09/02/24 21:29 Dose: 200 mls/hr Documented By: NADIA Ioversol (Optiray 320 100ml) 93 ml IV ONCE ONE Stop: 09/02/24 20:39 Last Admin: 09/02/24 20:38 Dose: 93 ml Documented By: GES Discharge Plan Visit Data Chief Complaint: Fever Stated Complaint: UTI, CHILLS, FEVER ED Provider: Debora Silva Discharge Problem: Complicated urinary tract infection, Leukocytosis, DIONNA (acute kidney injury), Thrombocytopenia Forms Stand Alone Forms: [facility] Prescriptions Prescriptions: No Action magnesium 250 mg tablet 250 mg PO DAILY trazodone 100 mg tablet 100 mg PO DAILY valsartan 160 mg Tablet 160 mg PO QAM melatonin 5 mg Tablet 5 mg PO HS PRN (Reason: Sleep) magnesium hydroxide [Milk of Magnesia] 400 mg/5 mL Suspension 15 - 45 ml PO DAILY PRN (Reason: Constipation) calcium polycarbophil [Fiber (calcium polycarbophil)] 625 mg Tablet 625 mg PO DAILY PRN (Reason: Constipation) docusate sodium [Stool Softener] 100 mg Capsule 100 - 200 mg PO DAILY PRN (Reason: Constipation) Fiber Gummies 1.7 gram Tablet,Chewable 3.4 g PO DAILY PRN (Reason: Constipation) Referrals Referrals: Ronni Cabral MD [Primary Care Provider] -
[2024-09-02 19:48] LABS: Appearance Urine Cloudy (Clear); Bacteria Urine Automated None Seen (None Seen); Bilirubin Urine Negative (Negative); Blood Urine 1+ (Negative); Cast Urine Automated 0-2 /lpf (0-2); Color Urine Yellow; Epithelial Cell Urine Auto 0-2 /hpf (0-2); Glucose Urine UA Negative (Negative); Ketones Urine Trace (Negative); Leukocyte Esterase Urine 3+ (Negative); Nitrite Urine Negative (Negative); Protein Urine 2+ (Negative); Specific Gravity Urine 1.026 (1.000-1.030); Urobilinogen Urine Negative (Negative); WBC Urine Automated >50 /hpf (0-5); pH Urine 8.5 (4.5-7.5)
[2024-09-02 19:51] LABS: Albumin Globulin Ratio 1.8 (0.9-2); Albumin Level 4.3 gm/dl (3.4-5.0); BUN Creatinine Ratio 26.1 (10-20); Calcium 9.2 mg/dl (8.6-10.3); Creatinine Clr Calc Pharmacy 35.6 ml/min; Globulin 2.4 gm/dl (2.5-4.0); Potassium 4.5 mmol/L (3.5-5.1); Total Protein 6.7 gm/dl (6.0-8.3)
[2024-09-02] MEDS: SODIUM CHLORIDE 0.9% 1,000 ML IV ONE ×2 (20:02→22:56)
[2024-09-02 20:18] LABS: Basophils # (auto) 0.03 K/uL (0.00-0.20); Basophils % (auto) 0.2 %; Hematocrit (blood only) 39.2 % (42.0-52.0); Hemoglobin 13.8 g/dl (14.0-18.0); Immature Granulocytes # (auto) 0.09 K/uL (0.01-0.20); Immature Granulocytes % (auto) 0.6 %; Lymphocytes # (auto) 0.22 K/uL (1.20-3.40); Lymphocytes % (auto) 1.5 %; Mean Corpuscular Hemoglobin 32.1 pg (25.0-34.0); Mean Corpuscular Hgb Conc 35.2 g/dL (32.0-36.0); Mean Corpuscular Volume 91.2 fL (80.0-100.0); Mean Platelet Volume 11.2 fL (9.4-12.4); Monocytes # (auto) 0.53 K/uL (0.11-0.59); Monocytes % (auto) 3.5 %; Neutrophils # (auto) 14.14 K/uL (1.40-6.50); Neutrophils % (auto) 94.2 %; Platelet Count 106 K/uL (130-400); RDW Coefficient of Variation 13.5 % (11.5-14.5); White Blood Count 15.01 K/ul (4.8-10.8)
[2024-09-02 20:30] LABS: Adenovirus PCR Not Detected (NotDetected); Bordetella parapertussis PCR Not Detected (NotDetected); Bordetella pertussis PCR Not Detected (NotDetected); Chlamydia pneumoniae PCR Not Detected (NotDetected); Coronavirus 229E PCR Not Detected (NotDetected); Coronavirus CoV-2 (COVID19)PCR Not Detected (NotDetected); Coronavirus HKU1 PCR Not Detected (NotDetected); Coronavirus NL63 PCR Not Detected (NotDetected); Coronavirus OC43PCR Not Detected (NotDetected); Human Metapneumovirus PCR Not Detected (NotDetected); Influenza A PCR Not Detected (NotDetected); Influenza B PCR Not Detected (NotDetected); Mycoplasma pneumoniae PCR Not Detected (NotDetected); Parainfluenza Virus 1 PCR Not Detected (NotDetected); Parainfluenza Virus 2 PCR Not Detected (NotDetected); Parainfluenza Virus 3 PCR Not Detected (NotDetected); Parainfluenza Virus 4 PCR Not Detected (NotDetected); Respiratory Syncytial VirusPCR Not Detected (NotDetected); Rhinovirus/Enterovirus PCR Not Detected (NotDetected)
[2024-09-02] MEDS: OPTIRAY 320 100ml IV ONE (20:38)
[2024-09-02] MEDS: AMPICILLIN/SULBACTAM SOD 3,000 MG/100 ML BAG IV STA (21:29)
--- NOTE | 2024-09-02 21:49 | CT Scan Report ---
Exam(s): CT ABDOMEN + PELVIS With Contrast IV Amt: 93 cc otpi 320 EXAM: CT Abdomen and Pelvis With Intravenous Contrast CLINICAL HISTORY: Reason for exam: complicated UTI; hematuria. TECHNIQUE: Axial computed tomography images of the abdomen and pelvis with intravenous contrast. CTDI is 20.95 mGy and DLP is 1053.66 mGy-cm. Automated exposure control was utilized for the study. A dose lowering technique was utilized adhering to the principles of ALARA. CONTRAST: Patient received 93 cc otpi 320 of IV contrast COMPARISON: 08/19/2024, pelvic MRI 08/08/2023 FINDINGS: Lung bases: Atelectasis in the lower lobes. ABDOMEN: Liver: Innumerable cysts throughout the liver. Largest measures 9.4 cm. Appearance is unchanged. Gallbladder and bile ducts: Unremarkable. Pancreas: Atrophic pancreas. Sequela of chronic pancreatitis. Spleen: Unremarkable. Adrenals: Unremarkable. Kidneys and ureters: No ureteral stone or obstructive uropathy. No evidence of acute pyelonephritis. Nonspecific perinephric fat stranding is likely age-related. Stomach and bowel: No bowel obstruction. Colonic diverticulosis without acute diverticulitis. Mild mucosal thickening in the rectum, underdistention versus mild proctitis.. PELVIS: Appendix: The appendix is not visualized. Bladder: Unremarkable. Reproductive: Prostatomegaly. TURP defect within the prostate. ABDOMEN and PELVIS: Intraperitoneal space: Unremarkable. No free air. No significant fluid collection. Bones/joints: Degenerative changes in the spine. Soft tissues: Unremarkable. Vasculature: Aortobiiliac atherosclerotic calcifications. Lymph nodes: Enlarged right mesorectal lymph node measuring 9 mm. Unchanged from the prior pelvic MRI. Colonic diverticulosis without acute diverticulitis. IMPRESSION: 1. No acute abnormality in the kidneys, ureters, or bladder. 2. Prostatomegaly status post TURP. 3. Mild mucosal thickening in the rectum, underdistention versus mild proctitis.. Electronically signed by: Marlon Scott MD 09/02/24 21:48 PM
--- NOTE | 2024-09-02 22:14 | History & Physical Report ---
Date of Service September 02, 2024 Assessment & Plan (1) Sepsis: Plan: Severe sepsis SIRS plus ARF Secondary to complicated UTI hx BPH/prostate cancer status post surgery hypertension, stable chronic anemia, hemoglobin at baseline mood disorder, stable Episodic thrombocytopenia Hyperglycemia rule out DM Admit to medical CS, Zosyn Monitor creatinine response to IVF Hold ARB until creatinine back to baseline Check hemoglobin A1c DVT prophylaxis. SCDs re: thrombocytopenia Full code Text document was generated using [employer] voice recognition software. It may contain grammatical or spelling errors. Kindly contact undersigned for clarification of any documentation item in question. History of Present Illness Chief Complaint: Fever chills Primary Care Provider: Ronni Cabral MD History obtained from patient and records. Medical history significant for hypertension, prostate cancer status post surgery, BPH, chronic anemia (baseline hemoglobin of 13), mood disorder. Last confinement May 2024 for complicated UTI the setting of acute epididymitis. Urine CS grew E. coli. Patient discharged on Levaquin course. Last night, patient noted fever chills without abdominal/flank pain/hematuria symptoms. Denies chest pain, SOB, cough symptoms. Not sure about sick contacts. IV ceftriaxone administered at the ER. 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 Allergies Allergy/AdvReac Type Severity Reaction Status Date / Time levofloxacin AdvReac Severe tendonitis Verified 09/02/24 20:22 Home Medications Medication Instructions Recorded Confirmed Type melatonin 5 mg tablet 5 mg PO HS PRN Sleep 05/06/24 09/02/24 History valsartan 160 mg tablet 160 mg PO QAM 05/06/24 09/02/24 History magnesium 250 mg tablet 250 mg PO DAILY 06/06/24 09/02/24 History trazodone 100 mg tablet 100 mg PO DAILY 08/28/24 09/02/24 History calcium polycarbophil 625 mg 625 mg PO DAILY PRN Constipation 09/02/24 09/02/24 History tablet (Fiber (calcium polycarbophil)) docusate sodium 100 mg capsule 100 - 200 mg PO DAILY PRN 09/02/24 09/02/24 History (Stool Softener) Constipation inulin 1.7 gram chewable tablet 3.4 g PO DAILY PRN Constipation 09/02/24 09/02/24 History (Fiber Gummies) magnesium hydroxide 400 mg/5 mL 15 - 45 ml PO DAILY PRN 09/02/24 09/02/24 History oral suspension (Milk of Magnesia) Constipation Past Med/Surg History Problem List (Updated 09/03/24 @ 09:04 by Charli Buitrago MD) Sepsis Thrombocytopenia (Acute) DIONNA (acute kidney injury) (Acute) Leukocytosis (Acute) Complicated urinary tract infection (Acute) Incontinence (Acute) Acute epididymitis (Acute) Complicated urinary tract infection (Acute) Prostate cancer (Acute) Gross hematuria Erectile dysfunction (Chronic) Elevated prostate specific antigen (PSA) (Chronic) BPH with obstruction/lower urinary tract symptoms (Chronic) Medical History Encounter for pre-operative examination Degenerative disc disease Pancreas cyst Liver cyst BPH (benign prostatic hyperplasia) Hypertension Nocturia Spinal stenosis Urinary frequency Surgical History S/P TURP History of cataract surgery H/O removal of cyst History of colonoscopy History of prostate surgery Hx of tonsillectomy Family History Father Diabetes H/O prostatectomy Mother Arthritis Grandmother (Maternal) Stomach cancer, Onset Age: 55 Grandfather (Maternal) Stomach cancer, Onset Age: 65 Other Hypertension No family history of adverse response to anesthesia Social History Smoking Status: Never smoker Second Hand Exposure: No; Do You Dip or Chew Tobacco: No; Hx Alcohol Use: No Hx Substance Use: No Preferred Language: Pashto Communication Ability: Effective Automation Test Engineer Required: No Beliefs That Will Affect Care: None marital status: Current Living Situation: Spouse 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al status: retired 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: [employer] department How many Children do You have: 2 Feels Safe at Home: Yes Safety Concerns: Feels Safe At This Time Assistive Devices: Glasses Review of Systems Review of Systems: As per HPI, all other systems reviewed and negative Physical Exam Physical Exam: GENERAL: Comfortable, pleasant, no respiratory distress SKIN: Normal color, warm HEENT: [place] palpebral conjunctivae, no ptosis, dry buccal mucosa NECK : Supple, no tenderness CHEST : CTA, no tenderness HEART : RRR, no obvious murmurs ABDOMEN: Some distention, nontender EXTREMITIES : No LE swelling/tenderness, palpable pulses, no other conspicuous deformities noted NEUROLOGIC : Coherent, no facial asymmetry, no other gross focality Results & Data Results & Data Vital Signs (Past 12 Hours) Vital Signs Temp Pulse Resp BP Pulse Ox O2 Del Method 09/02/24 21:31 147/71 H 09/02/24 21:30 84 09/02/24 21:21 78 23 09/02/24 21:00 137/75 09/02/24 21:00 137/75 09/02/24 21:00 137/75 09/02/24 21:00 137/75 09/02/24 21:00 137/75 09/02/24 21:00 137/75 09/02/24 21:00 137/75 09/02/24 21:00 137/75 09/02/24 21:00 137/75 09/02/24 21:00 137/75 09/02/24 21:00 137/75 09/02/24 20:45 80 21 96 09/02/24 20:30 138/70 09/02/24 20:30 138/70 09/02/24 20:30 138/70 09/02/24 20:30 138/70 09/02/24 20:30 138/70 09/02/24 20:30 138/70 09/02/24 20:30 138/70 09/02/24 20:30 138/70 09/02/24 20:15 85 25 H 09/02/24 20:12 85 20 09/02/24 20:10 136/67 09/02/24 20:10 136/67 09/02/24 20:10 136/67 09/02/24 20:10 136/67 09/02/24 20:10 136/67 09/02/24 20:10 136/67 09/02/24 20:03 82 24 136/67 09/02/24 19:51 84 21 09/02/24 19:42 86 21 09/02/24 19:33 89 19 09/02/24 19:27 85 24 09/02/24 19:15 Room Air 09/02/24 19:11 89 09/02/24 19:08 146/75 H 09/02/24 19:08 146/75 H 09/02/24 19:08 146/75 H 09/02/24 19:08 146/75 H 09/02/24 19:08 146/75 H 09/02/24 19:08 146/75 H 09/02/24 19:08 146/75 H 09/02/24 19:08 146/75 H 09/02/24 19:08 146/75 H 09/02/24 19:08 146/75 H 09/02/24 19:08 146/75 H 09/02/24 19:08 146/75 H 09/02/24 19:08 146/75 H 09/02/24 19:08 146/75 H 09/02/24 19:08 146/75 H 09/02/24 19:08 146/75 H 09/02/24 19:08 146/75 H 09/02/24 19:08 146/75 H 09/02/24 19:08 146/75 H 09/02/24 19:02 37.4 C 97 H 20 138/85 94 Room Air Laboratory Results Laboratory Results WBC 15.01 K/ul (4.8-10.8) H 09/02/24 19:14 RBC 4.30 M/uL (4.70-6.10) L 09/02/24 19:14 Hgb 13.8 g/dl (14.0-18.0) L 09/02/24 19:14 Hct 39.2 % (42.0-52.0) L 09/02/24 19:14 MCV 91.2 fL (80.0-100.0) 09/02/24 19:14 MCH 32.1 pg (25.0-34.0) 09/02/24 19:14 MCHC 35.2 g/dL (32.0-36.0) 09/02/24 19:14 RDW Std Deviation 45.0 fL (36.4-46.3) 09/02/24 19:14 RDW Coeff of Tracy 13.5 % (11.5-14.5) 09/02/24 19:14 Plt Count 106 K/uL (130-400) L 09/02/24 19:14 MPV 11.2 fL (9.4-12.4) 09/02/24 19:14 Immature Gran % (Auto) 0.6 % 09/02/24 19:14 Neut % (Auto) 94.2 % 09/02/24 19:14 Lymph % (Auto) 1.5 % 09/02/24 19:14 Anderson % (Auto) 3.5 % 09/02/24 19:14 Eos % (Auto) 0.0 % 09/02/24 19:14 Baso % (Auto) 0.2 % 09/02/24 19:14 Neut # (Auto) 14.14 K/uL (1.40-6.50) H 09/02/24 19:14 Lymph # (Auto) 0.22 K/uL (1.20-3.40) L 09/02/24 19:14 Anderson # (Auto) 0.53 K/uL (0.11-0.59) 09/02/24 19:14 Eos # (Auto) 0.00 K/uL (0.00-0.50) 09/02/24 19:14 Baso # (Auto) 0.03 K/uL (0.00-0.20) 09/02/24 19:14 Immature Gran # (Auto) 0.09 K/uL (0.01-0.20) 09/02/24 19:14 Sodium 140 mmol/L (136-145) 09/02/24 19:14 Potassium 4.5 mmol/L (3.5-5.1) 09/02/24 19:14 Chloride 106 mmol/L (98-107) 09/02/24 19:14 Carbon Dioxide 27 mmol/L (21-32) 09/02/24 19:14 Anion Gap 7 (3-11) 09/02/24 19:14 BUN 37 mg/dl (6-23) H 09/02/24 19:14 Creatinine 1.42 mg/dl (0.6-1.4) H 09/02/24 19:14 Est Cr Clr Drug Dosing 35.6 ml/min 09/02/24 19:14 eGFR 49.03 09/02/24 19:14 BUN/Creatinine Ratio 26.1 (10-20) H 09/02/24 19:14 Glucose 215 mg/dl (70-99(Fasting)) H 09/02/24 19:14 Lactate 1.7 mmol/L (0.4-2.0) 09/02/24 19:33 Calcium 9.2 mg/dl (8.6-10.3) 09/02/24 19:14 Total Bilirubin 1.0 mg/dl (0.2-1.0) 09/02/24 19:14 AST 24 U/L (13-39) 09/02/24 19:14 ALT 20 U/L (7-52) 09/02/24 19:14 Alkaline Phosphatase 55 U/L (34-104) 09/02/24 19:14 Total Protein 6.7 gm/dl (6.0-8.3) 09/02/24 19:14 Albumin 4.3 gm/dl (3.4-5.0) 09/02/24 19:14 Globulin 2.4 gm/dl (2.5-4.0) L 09/02/24 19:14 Albumin/Globulin Ratio 1.8 (0.9-2) 09/02/24 19:14 Lipase 7 U/L (11-82) L 09/02/24 19:14 Procalcitonin 0.26 ng/ml (0-0.5) 09/02/24 19:14 Urine Color Yellow 09/02/24 19:17 Urine Appearance Cloudy (Clear) A 09/02/24 19:17 Urine pH 8.5 (4.5-7.5) H 09/02/24 19:17 Ur Specific Lyndon 1.026 (1.000-1.030) 09/02/24 19:17 Urine Protein 2+ (Negative) H 09/02/24 19:17 Urine Glucose (UA) Negative (Negative) 09/02/24 19:17 Urine Ketones Trace (Negative) H 09/02/24 19:17 Urine Blood 1+ (Negative) H 09/02/24 19:17 Urine Nitrite Negative (Negative) 09/02/24 19:17 Urine Bilirubin Negative (Negative) 09/02/24 19:17 Urine Urobilinogen Negative (Negative) 09/02/24 19:17 Ur Leukocyte Esterase 3+ (Negative) H 09/02/24 19:17 Urine WBC (Auto) >50 /hpf (0-5) H 09/02/24 19:17 Urine RBC (Auto) 11-20 /hpf (0-2) H 09/02/24 19:17 U Hyaline Cast (Auto) 0-2 /lpf (0-2) 09/02/24 19:17 U Epithel Cells (Auto) 0-2 /hpf (0-2) 09/02/24 19:17 Urine Bacteria (Auto) None Seen (None Seen) 09/02/24 19:17 Adenovirus (PCR) Not Detected (NotDetected) 09/02/24 19:20 B. pertussis DNA (PCR) Not Detected (NotDetected) 09/02/24 19:20 B.parapertussis DNA PCR Not Detected (NotDetected) 09/02/24 19:20 C. pneumoniae DNA (PCR) Not Detected (NotDetected) 09/02/24 19:20 Coronavirus OC43 (PCR) Not Detected (NotDetected) 09/02/24 19:20 Coronavirus HKU1 (PCR) Not Detected (NotDetected) 09/02/24 19:20 Coronavirus 229E (PCR) Not Detected (NotDetected) 09/02/24 19:20 SARS-CoV-2 (PCR) Not Detected (NotDetected) 09/02/24 19:20 Coronavirus NL63 (PCR) Not Detected (NotDetected) 09/02/24 19:20 Human Metapneumovir PCR Not Detected (NotDetected) 09/02/24 19:20 Influenza Type A (PCR) Not Detected (NotDetected) 09/02/24 19:20 Influenza Type B (PCR) Not Detected (NotDetected) 09/02/24 19:20 M. pneumoniae (PCR) Not Detected (NotDetected) 09/02/24 19:20 Parainfluenza 1 (PCR) Not Detected (NotDetected) 09/02/24 19:20 Parainfluenza 2 (PCR) Not Detected (NotDetected) 09/02/24 19:20 Parainfluenza 3 (PCR) Not Detected (NotDetected) 09/02/24 19:20 Parainfluenza 4 (PCR) Not Detected (NotDetected) 09/02/24 19:20 RSV (PCR) Not Detected (NotDetected) 09/02/24 19:20 Entero/Rhino (PCR) Not Detected (NotDetected) 09/02/24 19:20 Impressions Abdomen/Pelvis CT 09/02/24 19:53 Exam(s): CT ABDOMEN + PELVIS With Contrast IV Amt: 93 cc otpi 320 EXAM: CT Abdomen and Pelvis With Intravenous Contrast CLINICAL HISTORY: Reason for exam: complicated UTI; hematuria. TECHNIQUE: Axial computed tomography images of the abdomen and pelvis with intravenous contrast. CTDI is 20.95 mGy and DLP is 1053.66 mGy-cm. Automated exposure control was utilized for the study. A dose lowering technique was utilized adhering to the principles of ALARA. CONTRAST: Patient received 93 cc otpi 320 of IV contrast COMPARISON: 08/19/2024, pelvic MRI 08/08/2023 FINDINGS: Lung bases: Atelectasis in the lower lobes. ABDOMEN: Liver: Innumerable cysts throughout the liver. Largest measures 9.4 cm. Appearance is unchanged. Gallbladder and bile ducts: Unremarkable. Pancreas: Atrophic pancreas. Sequela of chronic pancreatitis. Spleen: Unremarkable. Adrenals: Unremarkable. Kidneys and ureters: No ureteral stone or obstructive uropathy. No evidence of acute pyelonephritis. Nonspecific perinephric fat stranding is likely age-related. Stomach and bowel: No bowel obstruction. Colonic diverticulosis without acute diverticulitis. Mild mucosal thickening in the rectum, underdistention versus mild proctitis.. PELVIS: Appendix: The appendix is not visualized. Bladder: Unremarkable. Reproductive: Prostatomegaly. TURP defect within the prostate. ABDOMEN and PELVIS: Intraperitoneal space: Unremarkable. No free air. No significant fluid collection. Bones/joints: Degenerative changes in the spine. Soft tissues: Unremarkable. Vasculature: Aortobiiliac atherosclerotic calcifications. Lymph nodes: Enlarged right mesorectal lymph node measuring 9 mm. Unchanged from the prior pelvic MRI. Colonic diverticulosis without acute diverticulitis. IMPRESSION: 1. No acute abnormality in the kidneys, ureters, or bladder. 2. Prostatomegaly status post TURP. 3. Mild mucosal thickening in the rectum, underdistention versus mild proctitis.. Electronically signed by: Marlon Scott MD 09/02/24 21:48 PM Diagnostic Findings EKG as per my interpretation :Rate 85, NSR, normal axis, no ischemia
[2024-09-02] MEDS ORDERED: oxyCODONE HCL IR 5 MG TAB (IMMEDIATE RELEASE) PO PRN (22:27)
[2024-09-02] MEDS ORDERED: PROMETHAZINE 6.25 MG/50.25 ML BAG IV PRN (22:27)
[2024-09-02] MEDS ORDERED: CALCIUM POLYCARBOPHIL 625MG TAB PO PRN (22:28)
[2024-09-02] MEDS ORDERED: MELATONIN 3 MG TAB PO PRN (22:31)
[2024-09-02] MEDS: traZODone HCL 100 MG TAB PO SCH (23:54)
[2024-09-03] MEDS: PIPERACILLIN/TAZOBACTAM 4.5 GM/100 ML BAG IV SCH (01:05)
[2024-09-03] MEDS: ACETAMINOPHEN 325 MG TAB PO PRN (06:12)
[2024-09-03 07:34] LABS: Estimated Average Glucose 105 mg/dl; Hemoglobin A1C 5.3 % (4.5-5.6)
--- OUTSIDE RECORDS SUMMARY | 2024-09-03 08:06 | External Medical Summary | Summary of Care ---
Author Name Unknown Organization [facility] Address [address] [place] [address] Phone [phone] Care Team Providers Care Soldering Machine Feeder Name Role Phone Marianna GODINEZ MD, Ronni Garcia Primary Care Provider [phone] Encounter Details Date Type Department Care Team (Late st Contact Info) Description 08/19/2024 Result Scan Unspecified Department <No scans attached> Allergies Active Allergy Reactions Criticality Noted Date Comments Dust 05/21/2013 Nasal congestion Molds & Smuts 05/21/2013 Nasal congestion documented as of this encounter (statuses as of 08/28/2024) Medications metroNIDAZOLE, topical, (METROCREAM) 0.75 % creamIndications [...] Triamcinolone Acetonide 0.1 % External Cream (Aristocort)Marlin cations:[place]'s disease APPLY TOPICALLY TO RASHES ON THE BODY TWICE DAILY NEEDED FOR FLARES. 454 g 4 Active Sildenafil Citrate 20 MG Oral Tablet (Revatio)Indicat ions:Erectile dysfunction, unspecified erectile dysfunction type TAKE 2-3 TABLETS BY MOUTH PRIOR TO INTERCOURSE 30 Tablet 3 4 Active Probiotic Daily Oral Capsule Take 1 Capsule by mouth in the morning. Active Solifenacin Succinate 5 MG Oral Tablet (VESIcare) Take 1 Tablet by mouth in the morning. Active documented as of this encounter (statuses as of 08/28/2024) Active Problems Problem Noted Date Diagnosed Date Recurrent major depressive disorder 08/22/2024 Prostatic adenocarcinoma 06/14/2024 S/P TURP (status post transurethral resection of prostate) 06/14/2024 HTN, goal below 140/90 07/11/2019 SPINAL STENOSIS-LUMBAR 07/19/2005 documented as of this encounter (statuses as of 08/28/2024) Resolved Problems Problem Noted Date Diagnosed Date Resolved Date Thrombocytopenia 07/11/2019 11/02/2022 Elevated blood pressure 05/12/201501/10 ADVANCE DIRECTIVE INFORMATION 10/28/2004 11/14/2022 Overview (10/28/2004): Yes, Patient instructed to provide copy of advance directive for provider to review and to be scanned into Electronic Medical Record documented as of this encounter (statuses as of 08/28/2024) Immunizations Name Administration Dates Next Due COVID-19 mRNA, LNP-s, No Pre serve, 2-Dose Series (Energy Points) 02/13/2021,08/18/2020,07/21/2020 COVID-19, MRNA-LNP, PF, 30 M CG/0.3 mL, 12 YRS AND ABOVE, IM (NavPrescience-Comirnat) 03/05/2024,03/17/2023 HEP A - Hepatitis A (Adult > 18 yrs) 04/14/2014 Pneumococcal Conjugate Vacc, 13 Valent (Prevnar) 05/22/2014 Pneumococcal Polysaccharide PPV23 (Pneumovax) 09/17/2015,08/17/2005 RSV Vac., Recomb, Adjuvant, PF,0.5 Ml (Arexvy) 05/16/2023 Seasonal Influenza Vac., MDV , IM, 0.5 mL (Fluzone) 04/14/2014,05/21/2013,03/29/2012,03/13,03/31/2010,03/25/2008,04/17/20 07,04/20/2006 04/07/2012 Seasonal Influenza Virus Vac cine, Unspecified [...] e alcohol) 1/day PHQ-2 Answer Date Recorded PHQ Adult Total Score 12 08/02/2024 Hunger Vital Sign Answer Date Recorded Within [...] ages 0-17 years) Not on file 03/21/2024 Food Insecurity Answer Date Recorded Within the past 12 months, y ou worried that your food would run out before you got the money to buy more. Never true 03/21/20 24 Within the past 12 months, t he food you bought just didn't last and you didn't have money to get more. Never true 03/21/2024 Do you need food for this week? No 03/21/2024 Sex and Gender Information Value Date [...] Care Team (Late st Contact Info) Description 09/09/2024 9:00 AM EDT Office Visit [facility] [address] [place] [address] Marianna III, Ronni Garcia MD [address] [place] [id number] 09/20/2024 9:30 AM EDT Office Visit Urology [facility] [address] [place] [address] [id number] Sheryl Chamberlain PA-C [address] [place] [id number] 10/03/2024 8:20 AM EDT Office Visit Family [facility] [address] [facility] [place] [address] Ronni Cabral III, MD [address] [facility] [place] [id number] 10/23/2024 11:30 AM EDT Office Visit Otolaryngology [facility] [address] [id number] Stephanie Chakraborty PA-C [address] [place] [id number] Scheduled Procedures Name Priority Associated Diagnoses Date/Ti me COLONOSCOPY FLEXIBLE PROXIMAL DIAGNOSTIC Recall History of colon polyps Health Maintenance Due Date Last Done Comments Adult Wellness Visit 09/10/2015 09/09/2014 COVID-19 Vaccine ( season) 2024 03/05/2024, 03/17/2023, 02/18/2022, Additional history exists Colonoscopy 01/23/2025 01/24/2020, 01/10, 10/30/2014, Additional history exists GFR 07/30/2025 07/30/2024, 03/13, 04/07/2023, Additional history exists Depression Monitoring 08/02/2025 08/02/2024, 025 DTap/Tdap Vaccines (3 - Td or Tdap) 01/27/2026 01/28/2016, 12/14/2005 Albumin/Creatinine Ratio 04/04/2027 024, 09/28/2023, 03/29/2023 Zoster Vaccines Completed 04/30/2018, 01/10, 11/08/2017, Additional history exists RETIRED - COLONOSCOPY-EVERY 5 YRS AGES 18-100 Discontinued 01/24/2020, 01/24/2020, 10/30/2014, Additional history exists Pneumococcal Vaccine: 50+ Years Completed 10/12/2023, 09/17/2015, 05/22/2014, Additional history exists Influenza Vaccine (FLU shot) Completed 03/05/2024, 03/13/2023, 03/12/2022, Additional history exists HPV (Gardasil) Vaccine Aged Out No lo nger eligible based on patient's age to complete this topic Hepatitis B Vaccine Aged Out No longe r eligible based on patient's age to complete this topic MENINGOCOCCAL (MENACTRA/MENVEO) Aged Out No longer eligible based on patient's age to complete this topic Meningitis B Vaccine (Bexsero/Trumemba) Aged Out No longer eligible based on patient's age to complete this topic documented as of this encounter Medical Devices Implanted Type Area Manuscript Reader Device Identifier Shelf Expiration Date Model / Serial / Lot Lens Intraoc 21.0 - [id number] - [id number] Implanted:Qty: 1 on 03/30/2021 by Aldo Solorzano MD at [facility] Right: Eye [employer] 12/09/2025 [id number] / [id number] / [id number] Lens Intraoc 20.5 - [id number] - [id number] Implanted:Qty: 1 on 04/13/2021 by Aldo Solorzano MD at [facility] Left: Eye [employer] 01/09/2026 [id number] / [id number] / documented as of this encounter Procedures Procedure Name Priority Date/Time Associated Diagnosis Comments RADIOLOGY SCANNED RESULT 08/19/2024 documented in this encounter Results * RADIOLOGY SCANNED RESULT (08/19/2024) 08/19/2024 us No Physician Data Unknown DIAGNOSTIC RADIOLOGY S ERVICES Final Result documented in this encounter Advance Directives Documents on File Type Date Recorded Patient Manager Of Compensation Expl anation Advance Directives and Living Will 12/19/2007 ADVANCE DIRECTIVE DURABLE HEALTH CARE POA + LIVING WILL Care Teams Soldering Machine Feeder Relationship Specialty Start Date End Date Ronni Cabral III, MD [address] [facility] [place] [place] [address] PCP - General 07/10/1997 documented as of this encounter
[2024-09-03 09:07] LABS: Hematocrit (blood only) 39.4 % (42.0-52.0); Hemoglobin 13.3 g/dl (14.0-18.0); Mean Corpuscular Hemoglobin 31.6 pg (25.0-34.0); Mean Corpuscular Hgb Conc 33.8 g/dL (32.0-36.0); Mean Corpuscular Volume 93.6 fL (80.0-100.0); RDW Coefficient of Variation 13.4 % (11.5-14.5); RDW Standard Deviation 45.8 fL (36.4-46.3); Red Blood Count 4.21 M/uL (4.70-6.10); White Blood Count 11.35 K/ul (4.8-10.8)
[2024-09-03 09:20] LABS: Basophils # (auto) 0.02 K/uL (0.00-0.20); Basophils % (auto) 0.2 %; Eosinophils # (auto) 0.03 K/uL (0.00-0.50); Eosinophils % (auto) 0.3 %; Immature Granulocytes # (auto) 0.07 K/uL (0.01-0.20); Immature Granulocytes % (auto) 0.6 %; Lymphocytes # (auto) 0.35 K/uL (1.20-3.40); Lymphocytes % (auto) 3.1 %; Monocytes # (auto) 0.65 K/uL (0.11-0.59); Monocytes % (auto) 5.7 %; Neutrophils # (auto) 10.23 K/uL (1.40-6.50); Neutrophils % (auto) 90.1 %; Platelet Count 88 K/uL (130-400); Platelet Estimate Decreased (Normal)
[2024-09-03 09:31] LABS: Calcium 8.8 mg/dl (8.6-10.3)
[2024-09-03 09:37] LABS: BUN Creatinine Ratio 23.5 (10-20); Creatinine Clr Calc Pharmacy 42.4 ml/min
[2024-09-03 10:51] LABS: A calco-baum cmplx NotReported Not Detected (NotDetected); Bact fragilis Not Reported Not Detected (NotDetected); Blood Culture Id Panel See PCR Comment (NotDetected); C auris Not Reported Not Detected (NotDetected); CTX-M Resistant Gene Not Detected (NotDetected); Calbicans Not Reported Not Detected (NotDetected); Candida glabrata Not Reported Not Detected (NotDetected); Candida krusei Not Reported Not Detected (NotDetected); Cneoformans/gatti Not Reported Not Detected (NotDetected); Cparapsilosis Not Reported Not Detected (NotDetected); E cloacae compx Not Reported Not Detected (NotDetected); Efaecalis Not Reported Not Detected (NotDetected); Efaecium Not Reported Not Detected (NotDetected); Enterobacterales DETECTED (NotDetected); Enterobacterales Not Reported DETECTED (NotDetected); Escherichia coli Not Reported DETECTED (NotDetected); H influenzae Not Reported Not Detected (NotDetected); IMP Resistant Gene Not Detected (NotDetected); K aerogenes Not Reported Not Detected (NotDetected); KPC Resistant Gene Not Detected (NotDetected); Koxytoca Not Reported Not Detected (NotDetected); Kpneumoniae grp Not Reported Not Detected (NotDetected); Lmonocyt Not Reported Not Detected (NotDetected); N meningitidis Not Reported Not Detected (NotDetected); NDM Resistant Gene Not Detected (NotDetected); OXA 48 Like Resistant Gene Not Detected (NotDetected); P aeruginosa Not Reported Not Detected (NotDetected); Proteus spp Not Reported Not Detected (NotDetected); Salmonella spp Not Reported Not Detected (NotDetected); Staph lugdunensis Not Reported Not Detected (NotDetected); Staph spp. Not Reported Not Detected (NotDetected); Staphaureus Not Reported Not Detected (NotDetected); Staphepi Not Reported Not Detected (NotDetected); Stenmaltophilia Not Reported Not Detected (NotDetected); Strep agal(GrpB) Not Reported Not Detected (NotDetected); Strep pneum Not Reported Not Detected (NotDetected); Strep pyog (GrpA) Not Reported Not Detected (NotDetected); Strep spp Not Reported Not Detected (NotDetected); VIM Resistant Gene Not Detected (NotDetected); mcr-1 Colistin Resistant Gene Not Detected (NotDetected)
--- NOTE | 2024-09-03 12:03 | Hospitalist Progress Note ---
Date of Service September 03, 2024 Assessment & Plan (1) Sepsis: Plan Pt is an 84yoF with PMhx significant for hypertension, prostate cancer status post surgery, BPH, chronic anemia (baseline hemoglobin of 13), mood disorder who presents with concern for fevers and chills. Severe sepsis Complicated UTI Bacteremia, gram negative SIRS plus ARF Secondary to complicated UTI hx BPH/prostate cancer status post surgery UA suggestive of infection Urine cx growing E coli Blood cx currently growing gram negative bacilli in 1/[address] abd/pelvis concerning for mild proctitis Continue IV zosyn Follow cultures Acute Kidney Injury Cr elevated IV Fluids improving Chronic medical problems: hypertension, stable chronic anemia, hemoglobin at baseline mood disorder, stable Episodic thrombocytopenia Hyperglycemia rule out DM Diet: HH DVT prophylaxis. SCDs re: thrombocytopenia Full code Admission and Anticipated Discharge Date Admission Date: September 02, 2024 Subjective pt was seen with family/friend at bedside Notes he has not pooped for some time States he is feeling better Review of Systems Review of Systems: All systems reviewed & are unremarkable except as noted in Subjective Physical Exam Physical Exam: General: Alert, oriented. No acute distress HEENT: NC/AT Chest: Nontender to palpation. CV: RRR Resp: Breath sounds clear bilaterally, no increased effort of breathing. No crackles/rhonchi/rales. Abdomen: Soft, nontender Extremities: No edema in lower extremities bilaterally. Results & Data Results & Data Vital Signs (Past 12 Hours) Vital Signs Temp Pulse Resp BP Pulse Ox O2 Del Method 09/03/24 08:34 36.6 C 65 18 122/68 96 Room Air 09/03/24 00:10 36.8 C 72 16 154/71 H 95 Room Air Diagnostic Findings Abdomen/Pelvis CT 09/02/24 19:53 Exam(s): CT ABDOMEN + PELVIS With Contrast IV Amt: 93 cc otpi 320 EXAM: CT Abdomen and Pelvis With Intravenous Contrast CLINICAL HISTORY: Reason for exam: complicated UTI; hematuria. TECHNIQUE: Axial computed tomography images of the abdomen and pelvis with intravenous contrast. CTDI is 20.95 mGy and DLP is 1053.66 mGy-cm. Automated exposure control was utilized for the study. A dose lowering technique was utilized adhering to the principles of ALARA. CONTRAST: Patient received 93 cc otpi 320 of IV contrast COMPARISON: 08/19/2024, pelvic MRI 08/08/2023 FINDINGS: Lung bases: Atelectasis in the lower lobes. ABDOMEN: Liver: Innumerable cysts throughout the liver. Largest measures 9.4 cm. Appearance is unchanged. Gallbladder and bile ducts: Unremarkable. Pancreas: Atrophic pancreas. Sequela of chronic pancreatitis. Spleen: Unremarkable. Adrenals: Unremarkable. Kidneys and ureters: No ureteral stone or obstructive uropathy. No evidence of acute pyelonephritis. Nonspecific perinephric fat stranding is likely age-related. Stomach and bowel: No bowel obstruction. Colonic diverticulosis without acute diverticulitis. Mild mucosal thickening in the rectum, underdistention versus mild proctitis.. PELVIS: Appendix: The appendix is not visualized. Bladder: Unremarkable. Reproductive: Prostatomegaly. TURP defect within the prostate. ABDOMEN and PELVIS: Intraperitoneal space: Unremarkable. No free air. No significant fluid collection. Bones/joints: Degenerative changes in the spine. Soft tissues: Unremarkable. Vasculature: Aortobiiliac atherosclerotic calcifications. Lymph nodes: Enlarged right mesorectal lymph node measuring 9 mm. Unchanged from the prior pelvic MRI. Colonic diverticulosis without acute diverticulitis. IMPRESSION: 1. No acute abnormality in the kidneys, ureters, or bladder. 2. Prostatomegaly status post TURP. 3. Mild mucosal thickening in the rectum, underdistention versus mild proctitis.. Electronically signed by: Marlon Scott MD 09/02/24 21:48 PM
--- NOTE | 2024-09-03 13:29 | Electrocardiogram Report ---
Test Reason : Blood Pressure : */* mmHG Vent. Rate : 85 BPM Atrial Rate : 85 BPM P-R Int : 170 ms QRS Dur : 90 ms QT Int : 346 ms P-R-T Axes : 55 23 56 degrees QTcB Int : 411 ms Normal sinus rhythm Normal ECG When compared with ECG of 03-May-2024 08:05, Vent. rate has increased by 32 bpm Confirmed by Silvio Hamilton ([id number]) on 09/03/2024 1:28:50 PM Referred By: REFERRED SELF Confirmed By: Silvio Hamilton
[2024-09-03] MEDS ORDERED: POLYETHYLENE (MIRALAX) 17 GM PACK PO PRN (18:35)
[2024-09-03] MEDS: DOCUSATE SODIUM 100 MG CAP PO SCH (20:29)
[2024-09-04 07:54] LABS: Basophils # (auto) 0.02 K/uL (0.00-0.20); Basophils % (auto) 0.3 %; Eosinophils # (auto) 0.03 K/uL (0.00-0.50); Eosinophils % (auto) 0.5 %; Hematocrit (blood only) 40.7 % (42.0-52.0); Immature Granulocytes # (auto) 0.02 K/uL (0.01-0.20); Immature Granulocytes % (auto) 0.3 %; Lymphocytes # (auto) 0.27 K/uL (1.20-3.40); Lymphocytes % (auto) 4.1 %; Mean Corpuscular Hgb Conc 34.4 g/dL (32.0-36.0); Mean Corpuscular Volume 92.9 fL (80.0-100.0); Mean Platelet Volume 10.9 fL (9.4-12.4); Monocytes # (auto) 0.53 K/uL (0.11-0.59); Neutrophils # (auto) 5.76 K/uL (1.40-6.50); Neutrophils % (auto) 86.8 %; Platelet Count 87 K/uL (130-400); RDW Coefficient of Variation 13.2 % (11.5-14.5); RDW Standard Deviation 45.1 fL (36.4-46.3); Red Blood Count 4.38 M/uL (4.70-6.10); White Blood Count 6.63 K/ul (4.8-10.8)
[2024-09-04 08:15] LABS: Albumin Globulin Ratio 1.5 (0.9-2); BUN Creatinine Ratio 19.8 (10-20); Calcium 9.1 mg/dl (8.6-10.3); Creatinine Clr Calc Pharmacy 41.7 ml/min; Globulin 2.7 gm/dl (2.5-4.0); Total Protein 6.7 gm/dl (6.0-8.3)
[2024-09-04] MEDS: ADVANCED PROBIOTIC 625 MG CAPSULE PO SCH (08:25)
[2024-09-04] MEDS: cefTRIAXone SODIUM 2,000 MG/50 ML BAG IV SCH (09:05)
--- NOTE | 2024-09-04 12:53 | Urology Consultation ---
Date of Consultation September 04, 2024 Assessment & Plan (1) Complicated urinary tract infection: (2) BPH with obstruction/lower urinary tract symptoms: 84-year-old male with BPH status post TURP admitted for sepsis and complicated UTI. Patient afebrile, hemodynamically stable Labs reviewedcreatinine 1.21, WBC 6.63, hemoglobin 14.0 CT showed prostatomegaly with TURP defect, no hydronephrosis Urine culture with pansensitive E. coli, covered with ceftriaxone Blood cultures 1 of 4 with E. coli Continue with IV antibiotics Upon discharge, transition to oral antibiotics based on culture data for complicated UTI No surgical intervention warranted at this time Recommend monitor emptying with postvoid residual bladder scans If there is evidence of retention, recommend placement of Owens catheter Recommend bowel regimen to normalize bowels Discussed that incontinence can be expected at this stage of healing after TURP and likely exacerbated by infection and constipation Can discuss options for management of incontinence as outpatient Continue supportive care, antibiotics and medical management per hospital medicine Will arrange outpatient follow-up with our service after discharge will sign off, please contact our service with any additional questions or concerns History of Present Illness Reason for Consultation: recurrent UTI and incontinence after TURP Requesting Physician: Dr. Huston Attending Physician: Akira Huston MD History of Present Illness This is a 84-year-old male followed by urology for BPH, hematuria and prostate cancer. He underwent transurethral resection of the prostate and obstruction of bladder stones on 05/20/2024. The pathology from TURP incidentally identified prostate cancer. He was admitted to the hospital 06/07/2024 through 06/10/2024 for acute epididymitis and complicated urinary tract infection. He presented to the emergency department on 09/02/2024 for evaluation of weakness, fevers and concern for UTI. On arrival to ED, he was afebrile and hemodynamically stable. Lab work showed leukocytosis of 15.01, hemoglobin 13.8, creatinine 1.42, lactate 1.7. Urinalysis showed 1+ blood, 3+ LE, >50 WBC, 11-20 RBC, 0-2 epithelial cells and negative for bacteria. BioFire PCR panel was negative. ED course: IV fluids and ampicillin. He was admitted to the hospital medicine service for sepsis. Urology is consulted for recurrent UTI, incontinence after TURP. Chart review: Urine culture 06/07/2024 with >100K CFU E. coli, pansensitive Urine culture 06/28/2024 with >100K CFU Enterococcus, resistance to tetracycline and gent Urine culture 09/02/2024 with 20K CFU of E. coli, pansensitive Blood cultures 1 of [address] abdomen pelvis on 09/02/2024 showed bilateral perinephric stranding, no hydronephrosis, prostatomegaly status post TURP. Labs todaycreatinine 1.21, WBC 6.63, hemoglobin 14.0 Patient seen and examined at bedside this afternoon. He is awake and resting in bed. Generally feeling better since arrival. No fever or chills. No nausea or vomiting. Voiding spontaneously. Reports urinary frequency, urgency and incontinence. No dysuria or hematuria at present. He reports he has had incontinence since his TURP procedure and is frustrated. Reports constipation. Reports he has not had a good bowel movement within the last month. He has tried stool softeners and laxative [id number] prior to arrival. Allergies Allergy/AdvReac Type Severity Reaction Status Date / Time levofloxacin AdvReac Severe tendonitis Verified 09/02/24 20:22 Home Medications Medication Instructions Recorded Confirmed Type melatonin 5 mg tablet 5 mg PO HS PRN Sleep 05/06/24 09/02/24 History valsartan 160 mg tablet 160 mg PO QAM 05/06/24 09/02/24 History magnesium 250 mg tablet 250 mg PO DAILY 06/06/24 09/02/24 History trazodone 100 mg tablet 100 mg PO DAILY 08/28/24 09/02/24 History calcium polycarbophil 625 mg 625 mg PO DAILY PRN Constipation 09/02/24 09/02/24 History tablet (Fiber (calcium polycarbophil)) docusate sodium 100 mg capsule 100 - 200 mg PO DAILY PRN 09/02/24 09/02/24 History (Stool Softener) Constipation inulin 1.7 gram chewable tablet 3.4 g PO DAILY PRN Constipation 09/02/24 09/02/24 History (Fiber Gummies) magnesium hydroxide 400 mg/5 mL 15 - 45 ml PO DAILY PRN 09/02/24 09/02/24 History oral suspension (Milk of Magnesia) Constipation Patient History Medical History Encounter for pre-operative examination Degenerative disc disease Pancreas cyst stable Liver cyst multiple small cysts, had a larger one aspirated. - stable. BPH (benign prostatic hyperplasia) Hypertension Nocturia Spinal stenosis Urinary frequency Surgical History S/P TURP 05/20/24 with destruction and extraction of bladder stones; History of cataract surgery bilateral H/O removal of cyst cyst aspirated from the liver with anesthesia History of colonoscopy removal of polyps - benign History of prostate surgery Greenlight laser procedure 2018 TUNA procedure 2004 Hx of tonsillectomy Family History Father Diabetes H/O prostatectomy Mother Arthritis Grandmother (Maternal) Stomach cancer, Onset Age: 55 Grandfather (Maternal) Stomach cancer, Onset Age: 65 Other Hypertension No family history of adverse response to anesthesia Social History Smoking Status: Never smoker Second Hand Exposure: No; Do You Dip or Chew Tobacco: No; Hx Alcohol Use: No Hx Substance Use: No Preferred Language: Bruneian Communication Ability: Effective 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 Beliefs That Will Affect Care: None marital status: Current Living Situation: Spouse 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al status: retired 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: [employer] department How many Children do You have: 2 Feels Safe at Home: Yes Safety Concerns: Feels Safe At This Time Assistive Devices: None Review of Systems Review of Systems: All systems reviewed & are unremarkable except as noted in HPI & below Physical Exam Constitutional: well developed and well nourished; no acute distress Respiratory: normal respiratory effort; no respiratory distress and no labored breathing Gastrointestinal (Abdomen): Inspection/Auscultation: abdomen normal to inspection Musculoskeletal: Head/Neck/Chest: normocephalic Neurologic: moves all extremities and awake Psychiatric: Orientation: alert and oriented x 3 Results & Data Vital Signs (Past 12 Hours) Vital Signs Temp Pulse Resp BP Pulse Ox O2 Del Method 09/04/24 09:30 Room Air 09/04/24 07:33 36.5 C 62 18 132/65 96 Room Air PG Care Time/CCT Total # of Minutes Spent Total Time Spent with Patient: Total time spent is greater than 50% in coordination of care (as documented) at patient's floor/unit and/or counseling patient: Coding Level of Care Code 47913 INT INP/OBS CARE MIN Diagnoses Complicated urinary tract infection N39.0 BPH with obstruction/lower urinary tract symptoms N40.1; N13.8
--- NOTE | 2024-09-04 15:51 | Hospitalist Progress Note ---
Date of Service September 04, 2024 Assessment & Plan (1) Sepsis: Plan Pt is an 84yoF with PMhx significant for hypertension, prostate cancer status post surgery, BPH, chronic anemia (baseline hemoglobin of 13), mood disorder who presents with concern for fevers and chills. E. coli bacteremia Recent TURP, Recently diagnosed prostate cancer Patient presented with fever and chills. Reports urinary incontinence since TURP procedure Postvoid bladder scan of 55 cc Urine culture growing E. coli Blood culture growing E. coli in 1 out of 4 bottles Antibiotics changed to ceftriaxone from IV Zosyn Plan repeat blood culture tomorrow a.m. Urology consulted given patient's continued incontinence and repeated episodes of UTI. Acute Kidney Injury-resolved with iv fluids Chronic medical problems: hypertension, stable chronic anemia, hemoglobin at baseline mood disorder, stable Episodic thrombocytopenia Hyperglycemia - HbA1c wnl Diet: HH DVT prophylaxis. SCDs re: thrombocytopenia Full code Time spent evaluating patient, direct bedside care, chart review, placing orders, interpretation of diagnostic studies, discussion with consultants, patient, and family members, as well as other required patient management activities is 50 minutes Please note the above document was generated using voice recognition software. It may contain grammatical, syntax or spelling errors. Any formal questions or concerns about the content, text or information contained within the body of this dictation should be directly addressed to the provider for clarification Admission and Anticipated Discharge Date Admission Date: September 02, 2024 Subjective Patient seen and examined at bedside. He reports that he is feeling better compared to previous day. Denies any fever or chills Reports problems with incontinence. Review of Systems Review of Systems: All systems reviewed & are unremarkable except as noted in Subjective Physical Exam Physical Exam: Constitutional: WD/WN, vitals as above, NAD, sitting up in bed, pleasant, conversing easily Respiratory: normal respiratory effort, lungs clear to auscultation, no wheeze, rales, rhonchi. Normal insp/exp effort, no accessory muscle use Cardiovascular: RRR, no murmur, no edema Vessels: no JVD or carotid bruit Chest: normal inspection of chest Abdomen: normal bowel sounds, soft, nontender, no hepatosplenomegaly Musculoskeletal: no cyanosis or clubbing, extremities motor strength 5/5 Skin: no rashes, warm and dry normal turgor Neurologic: PERRL, EOMI, accommodation nl, no face palsy, no dysarthria CN's II- XI intact bilaterally and moves all extremities Psychiatric: A+Ox3, euthymic affect Results & Data Results & Data Vital Signs (Past 12 Hours) Vital Signs Temp Pulse Resp BP Pulse Ox O2 Del Method 09/04/24 15:41 36.5 C 61 18 164/83 H 95 Room Air 09/04/24 09:30 Room Air 09/04/24 07:33 36.5 C 62 18 132/65 96 Room Air
[2024-09-05 08:13] LABS: Basophils # (auto) 0.02 K/uL (0.00-0.20); Basophils % (auto) 0.4 %; Eosinophils # (auto) 0.05 K/uL (0.00-0.50); Eosinophils % (auto) 1.1 %; Hematocrit (blood only) 42.5 % (42.0-52.0); Hemoglobin 14.6 g/dl (14.0-18.0); Immature Granulocytes # (auto) 0.02 K/uL (0.01-0.20); Immature Granulocytes % (auto) 0.4 %; Lymphocytes # (auto) 0.38 K/uL (1.20-3.40); Lymphocytes % (auto) 8.5 %; Mean Corpuscular Hemoglobin 31.7 pg (25.0-34.0); Mean Corpuscular Hgb Conc 34.4 g/dL (32.0-36.0); Mean Corpuscular Volume 92.2 fL (80.0-100.0); Monocytes # (auto) 0.48 K/uL (0.11-0.59); Monocytes % (auto) 10.8 %; Neutrophils # (auto) 3.51 K/uL (1.40-6.50); Neutrophils % (auto) 78.8 %; Platelet Count 100 K/uL (130-400); RDW Coefficient of Variation 13.2 % (11.5-14.5); RDW Standard Deviation 44.8 fL (36.4-46.3); Red Blood Count 4.61 M/uL (4.70-6.10); White Blood Count 4.46 K/ul (4.8-10.8)
[2024-09-05 08:34] LABS: BUN Creatinine Ratio 22.7 (10-20); Calcium 9.5 mg/dl (8.6-10.3); Creatinine Clr Calc Pharmacy 42.4 ml/min; Potassium 4.1 mmol/L (3.5-5.1)
--- NOTE | 2024-09-05 14:09 | Hospitalist Progress Note ---
Date of Service September 05, 2024 Assessment & Plan (1) Sepsis: Plan Pt is an 84yoF with PMhx significant for hypertension, prostate cancer status post surgery, BPH, chronic anemia (baseline hemoglobin of 13), mood disorder who presents with concern for fevers and chills. E. coli bacteremia Recent TURP, Recently diagnosed prostate cancer Patient presented with fever and chills. Reports urinary incontinence since TURP procedure Postvoid bladder scan of 55 cc Urine culture growing E. coli Blood culture growing E. coli in 2 out of 4 bottles Antibiotics changed to ceftriaxone from IV Zosyn; plan to treat for 10 days with oral antibiotics at discharge. will follow up on repeat blood cx Acute Kidney Injury-resolved with iv fluids Chronic medical problems: hypertension, stable chronic anemia, hemoglobin at baseline mood disorder, stable Episodic thrombocytopenia Hyperglycemia - HbA1c wnl Diet: HH DVT prophylaxis. SCDs re: thrombocytopenia Full code Time spent evaluating patient, direct bedside care, chart review, placing orders, interpretation of diagnostic studies, discussion with consultants, patient, and family members, as well as other required patient management jasieli alex is 50 minutes Please note the above document was generated using voice recognition software. It may contain grammatical, syntax or spelling errors. Any formal questions or concerns about the content, text or information contained within the body of this dictation should be directly addressed to the provider for clarification Admission and Anticipated Discharge Date Admission Date: September 02, 2024 Subjective Patient seen and examined at bedside. Comfortable; not in distress. Denies fever, chills, chest pain, shortness of breath, abdominal pain or urinary symptoms. No significant overnight events Review of Systems Review of Systems: All systems reviewed & are unremarkable except as noted in Subjective Physical Exam Physical Exam: Constitutional: WD/WN, vitals as above, NAD, sitting up in bed, pleasant, conversing easily Respiratory: normal respiratory effort, lungs clear to auscultation, no wheeze, rales, rhonchi. Normal insp/exp effort, no accessory muscle use Cardiovascular: RRR, no murmur, no edema Vessels: no JVD or carotid bruit Chest: normal inspection of chest Abdomen: normal bowel sounds, soft, nontender, no hepatosplenomegaly Musculoskeletal: no cyanosis or clubbing, extremities motor strength 5/5 Skin: no rashes, warm and dry normal turgor Neurologic: PERRL, EOMI, accommodation nl, no face palsy, no dysarthria CN's II- XI intact bilaterally and moves all extremities Psychiatric: A+Ox3, euthymic affect Results & Data Results & Data Vital Signs (Past 12 Hours) Vital Signs Temp Pulse Resp BP Pulse Ox O2 Del Method 09/05/24 07:36 36.5 C 70 16 159/85 H 98 Room Air
[2024-09-05] MEDS: VALSARTAN 80 MG TAB PO STA (21:10)
[2024-09-06 07:17] LABS: Basophils # (auto) 0.01 K/uL (0.00-0.20); Basophils % (auto) 0.2 %; Eosinophils # (auto) 0.09 K/uL (0.00-0.50); Eosinophils % (auto) 2.2 %; Hematocrit (blood only) 39.3 % (42.0-52.0); Hemoglobin 13.8 g/dl (14.0-18.0); Immature Granulocytes # (auto) 0.02 K/uL (0.01-0.20); Immature Granulocytes % (auto) 0.5 %; Lymphocytes # (auto) 0.67 K/uL (1.20-3.40); Lymphocytes % (auto) 16.5 %; Mean Corpuscular Hgb Conc 35.1 g/dL (32.0-36.0); Mean Corpuscular Volume 91.2 fL (80.0-100.0); Mean Platelet Volume 10.9 fL (9.4-12.4); Monocytes # (auto) 0.45 K/uL (0.11-0.59); Monocytes % (auto) 11.1 %; Neutrophils # (auto) 2.81 K/uL (1.40-6.50); Neutrophils % (auto) 69.5 %; Platelet Count 111 K/uL (130-400); RDW Coefficient of Variation 12.9 % (11.5-14.5); RDW Standard Deviation 43.3 fL (36.4-46.3); Red Blood Count 4.31 M/uL (4.70-6.10); White Blood Count 4.05 K/ul (4.8-10.8)
[2024-09-06 07:29] LABS: BUN Creatinine Ratio 28.2 (10-20); Calcium 9.1 mg/dl (8.6-10.3); Creatinine Clr Calc Pharmacy 45.9 ml/min; Potassium 4.1 mmol/L (3.5-5.1)
[2024-09-06] MEDS: VALSARTAN 80 MG TAB PO SCH (07:42)
[2024-09-06 08:30] VITALS: BP 154/67; PULSE 69; RESP 18; TEMP 97.9; O2SAT 98
--- NOTE | 2024-09-06 16:48 | Discharge Summary ---
Date of Service September 06, 2024 Admission HPI Per Admitting Provider History obtained from patient and records. Medical history significant for hypertension, prostate cancer status post surgery, BPH, chronic anemia (baseline hemoglobin of 13), mood disorder. Last confinement May 2024 for complicated UTI the setting of acute epididymitis. Urine CS grew E. coli. Patient discharged on Levaquin course. Last night, patient noted fever chills without abdominal/flank pain/hematuria symptoms. Denies chest pain, SOB, cough symptoms. Not sure about sick contacts. IV ceftriaxone administered at the ER. 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 coli bacteremia Recent TURP, Recently diagnosed prostate cancer Discharge Exam Constitutional: WD/WN, vitals as above, NAD, sitting up in bed, pleasant, conversing easily Respiratory: normal respiratory effort, lungs clear to auscultation, no wheeze, rales, rhonchi. Normal insp/exp effort, no accessory muscle use Cardiovascular: RRR, no murmur, no edema Vessels: no JVD or carotid bruit Chest: normal inspection of chest Abdomen: normal bowel sounds, soft, nontender, no hepatosplenomegaly Musculoskeletal: no cyanosis or clubbing, extremities motor strength 5/5 Skin: no rashes, warm and dry normal turgor Neurologic: PERRL, EOMI, accommodation nl, no face palsy, no dysarthria CN's II- XI intact bilaterally and moves all extremities Psychiatric: A+Ox3, euthymic affect Discharge Data Allergies Allergy/AdvReac Type Severity Reaction Status Date / Time levofloxacin AdvReac Severe tendonitis Verified 09/02/24 20:22 Consultations 09/02/24 21:24 ED Decision to Admit Stat 03/26/25 10:58 Consult Urology Routine Ordered Studies 09/02/24 19:53 CT Abd and Pelvis [CT abd pelvis IV con only] Stat Hospital Course (1) Sepsis: Plan Pt is an 84yoF with PMhx significant for hypertension, prostate cancer status post surgery, BPH, chronic anemia (baseline hemoglobin of 13), mood disorder who presents with concern for fevers and chills. E. coli bacteremia Recent TURP, Recently diagnosed prostate cancer Patient presented with fever and chills. Reports urinary incontinence since TURP procedure Postvoid bladder scan of 55 cc Urine culture growing E. coli Blood culture growing E. coli in 2 out of 4 bottles Patient was treated with ceftriaxone during the hospitalization. Repeat blood culture was negative. At that time of the discharge, he was placed on Augmentin for 7 more days to complete the antibiotic course. Patient to follow-up with PCP in next few days. Please note the above document was generated using voice recognition software. It may contain grammatical, syntax or spelling errors. Any formal questions or concerns about the content, text or information contained within the body of this dictation should be directly addressed to the provider for clarification Total Time Total Time Spent Total Time Spent (In Minutes): 45 Total Time Includes: Examination of the Patient, Discharge Planning, Medication Reconciliation, Communication With Other Providers and Other Discharge Plan Discharge Items Patient Disposition: Home - Self-Care Reason For Visit: SEPSIS Discharge Diagnosis: E. coli bacteremia Recent TURP, Activity: Resume your previous activity Non-emergency contact: Primary Care Provider Call non-emergency contact if: you have any medication questions and your symptoms worsen Follow-up/Referrals: Ronni Cabral MD [Primary Care Provider] - 09/09/24 9:00 am (Date & Time 09/09/2024 9:00 AM Provider: Ronni Cabral III, MD [facility] *this is a previously made appointment*) Diet: Regular Addtl Attending Provider Instructions: You were admitted to the hospital with infection in the blood due to urinary tract infection. You were treated with IV antibiotic during the hospitalization. You are prescribed Augmentin to be taken twice a day for 7 more days. Pending Studies at Discharge: No Stand-Alone Forms: My [employer], Smoking Cessation Medications and DC Order Prescriptions: New amoxicillin-pot clavulanate 875-125 mg tablet 1 tab PO BID 7 Days Qty: 14 0RF Continued magnesium 250 mg tablet 250 mg PO DAILY trazodone 100 mg tablet 100 mg PO DAILY valsartan 160 mg Tablet 160 mg PO QAM melatonin 5 mg Tablet 5 mg PO HS PRN (Reason: Sleep) magnesium hydroxide [Milk of Magnesia] 400 mg/5 mL Suspension 15 - 45 ml PO DAILY PRN (Reason: Constipation) calcium polycarbophil [Fiber (calcium polycarbophil)] 625 mg Tablet 625 mg PO DAILY PRN (Reason: Constipation) docusate sodium [Stool Softener] 100 mg Capsule 100 - 200 mg PO DAILY PRN (Reason: Constipation) Fiber Gummies 1.7 gram Tablet,Chewable 3.4 g PO DAILY PRN (Reason: Constipation) Discharge Orders: Discharge Order (Routine); Ordered 09/06/24 Ordered By: Akira Huston Admission Data Admit Date/Time: 09/02/24 22:15 Attending Provider: Akira Huston Admit Provider: Charli Buitrago Primary Care Provider: Ronni Cabral Other Providers: Charli Buitrago Other Interventions: Discharge Summary Assessment (RN) Last Done: 09/06/24 10:05
== END 2024-09-06 13:52 | disposition home or self-care (01) | DRG 872 ==
LOC: ED 18:54 → SUATTDRO 22:15 → 3W 22:15